=== PATIENT | male | born 1980 | race Caucasian/White ===

== ENCOUNTER 2018-04-06 09:12 | Day surgery (SDC) | payer OTHER ==
[~2018-04-06] VITALS: Ht 188 cm; Wt 79.4 kg
[~2018-04-06 09:12] MED LIST: ACETAMINOPHEN-1 EAC1 PO; AMBIEN10 MG PO; AMOXICILLIN500 MG PO; CYCLOBENZAPRINE10 MG PO; CYMBALTA30 MG PO; DAILY VITE1 EACH PO; FLUARIX QU60 MCG/0.3 IM; IBUPROFEN600 MG PO; NORCO 10-325 T1 EACH PO; NORCO 5-325 TA1 EACH PO; NORCO 7.5-3251 EACH PO; OXYCODON-ACETA1 EAC2 PO; POTASSIUM CHLO20 ME1 PO; PROPRANOLOL HCL20 MG PO; PROTONIX40 MG PO; RESTORIL30 MG PO; ULTRAM50 MG PO; VITAMIN D32000 UNIT PO; XANAX1 MG PO
--- NOTE | 2018-04-06 11:25 | NUR ---
04/06/18 1125 Anjelica Byrd 1121 PATIENT ARRIVES TO PACU SLEEPING, DOES NOT RESPOND TO VERBAL OR TACTILE STIMULI. RESP EVEN AND UNLABORED, NC AT 3 LITERS. TURNED OFF AFTER ARRIVALTO PACU.
--- NOTE | 2018-04-07 11:04 | OR ---
[facility] [address], [place] [address] Signed DATE OF OPERATION: 04/06/2018 SURGEON: Duane Orta MD PREOPERATIVE DIAGNOSIS: Chronic diarrhea. POSTOPERATIVE DIAGNOSES: 1. Chronic diarrhea. 2. Unremarkable colonoscopy. PROCEDURES: Colonoscopy with random cold biopsies. ESTIMATED BLOOD LOSS: None. INDICATIONS: Davy is a 37-year-old gentleman who [facility] [place] and he has had diarrhea ever since. He goes to bathroom at least 6-7 times a day. It is very loose with lots of water in particulate matter. He has some probable PTSD and is disabled from the . He stays home with his children while his works. He has had an upper endoscopy and his gallbladder removed that made no difference. He also had the appendix out apparently while [facility]. It also sounds like he has back and neck injuries as well. He was asked by his primary care provider to see me for a colonoscopy with biopsies due to his diarrhea. I met with Davy in the office and I gave him a pamphlet on endoscopy. He understands the nature of the test along with the risks including, but not limited to gas bloating, crampy abdominal pain, bleeding, perforation, requiring surgery, and missed diagnosis. He also understands the need for IV conscious sedation. He expressed understanding and wish to proceed. PROCEDURE NOTE: Davy was taken into our endoscopy suite and placed in the left lateral decubitus position. He was given divided doses of 14 mg of Versed and 250 mcg of fentanyl. A digital rectal exam was performed and this was unremarkable. The adult colonoscope was introduced and advanced all around into the cecum under direct visualization of camera without difficulty. His prep was good. He was still moderately agitated throughout the procedure, so getting into the terminal ileum was just not possible. If that is the case, he will need propofol. However, he had nice clear bile in the cecum, which was irrigated and suctioned out. We saw no pathology throughout the entire colon or rectum. Electronically Signed By: DUANE ORTA MD 04/07/18 1104 PATIENT NAME: DAVY NATARAJAN OPERATIVE REPORT DATE OF : 84 REPORT #: [id number] PHYSICIAN: DUANE ORTA MD PCP: BRENT RAYMOND NP REPORT IS CONFIDENTIAL AND NOT TO BE RELEASED WITHOUT AUTHORIZATION [facility] [address] [place] [id number] Signed We went ahead and took random biopsies as the scope was withdrawn including the rectum. Upon retroflexion of the scope, there was no additional pathology noted above the anal canal. After this, the gas was suctioned out and the colonoscope removed. Davy tolerated the procedure quite well. RECOMMENDATIONS: I will see Davy back in my office in 7 to 14 days to review his results. MD VINAY Quinones/SANDERL /[id number] cc: Dr. Narcisa Orta MD Copies: DUANE ORTA MD ~ Electronically Signed By: DUANE ORTA MD 04/07/18 1104 PATIENT NAME: DAVY NATARAJAN RUBENS OPERATIVE REPORT DATE OF : 84 REPORT #: [id number] PHYSICIAN: DUANE ORTA MD PCP: BRENT RAYMOND NP REPORT IS CONFIDENTIAL AND NOT TO BE RELEASED WITHOUT AUTHORIZATION
== END 2018-04-06 11:50 | disposition home or self-care (01) ==
LOC: DS 09:12 → OPS 09:12
PROVIDERS: Colon & Rectal Surgery
PROC: 0DBE8ZX Excision of Large Intestine, Via Natural or Artificial Opening Endoscopic, Diagnostic (ICD-10-PCS; principal; 2018-04-06 10:30)
DX: K52.9 Noninfective gastroenteritis and colitis, unspecified (principal); E78.5 Hyperlipidemia, unspecified; M85.80 Other specified disorders of bone density and structure, unspecified site; F43.12 Post-traumatic stress disorder, chronic; F17.220 Nicotine dependence, chewing tobacco, uncomplicated; Z79.899 Other long term (current) drug therapy
CPT/HCPCS: 88305; 99153; G0500; J2250; J3010; J7120

== ENCOUNTER 2020-03-16 17:27 | Emergency (ER) | payer OTHER ==
[~2020-03-16] VITALS: Ht 188 cm; Wt 81.7 kg
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
--- OUTSIDE RECORDS SUMMARY | ~2020-03-16 | XMS | Encounter Summary ---
Demographics + + + | Address | [address] | | | [place] [address] | + + + | Home Phone | | + + + | Preferred Language | Unknown | + + + | Marital Status | | + + + | Judaism Affiliation | Unknown | + + + | Race | Unknown | + + + | Ethnic Group | Unknown | + + + Author + + + | Author | [facility] | | | and [place] | + + + | Organization | [facility] | | | [...] [place] | | | | | [address] | | + + + + + Care Team Providers + +------+ + | Care Director Of Clinical Education Name | Role | Phone | + +------+ + | Javier Hyman MD | PCP | | + +------+ + Encounter Details +--------+ + + + + | Date | Type | Department | Care Team | Description | +--------+ + + + + | 03/20/ | Orders Only | [facility] | Provider, | Precocious puberty; | | 2018 | | [facility] | MD [address] | Other specified | | | | [address] | [address] | disorders of bone | | | | [address] [place], [place] | [place] [address] | density and | | | | [address] | | structure, | | | | [phone] | | unspecified site | +--------+ + + + + Social History + + + +--------+------+ | Tobacco Use | Types | Packs/Day | Years | Date | | | | | Used | | + + + +--------+------+ | Former Smoker | Cigarettes | 1 | 11 | | + + + +--------+------+ + +---+---+---+ | Smokeless Tobacco: | | | | | Former User | | | | + +---+---+---+ + + +---------+ + | Alcohol Use | Drinks/Week | oz/Week | Comments | + + +---------+ + | Yes | 21 Standard drinks | 17.5 | 3 drinks a night | | | or equivalent | | | + + +---------+ + + + + | Sex Assigned at | Date Recorded | | | | + + + | Not on file | | + + + documented as of this encounter Plan of Treatment + +------+--------+ + + | Name | Type | Priori | Associated Diagnoses | Order Schedule | | | | ty | | | + +------+--------+ + + | Testosterone, Total | Lab | Routin | Precocious puberty | Expected: | | | | e | | 02/13/2019, Expires: | | | | | | 02/13/2020 | + +------+--------+ + + | Estradiol | Lab | Routin | Precocious puberty | Expected: | | | | e | | 02/13/2019, Expires: | | | | | | 02/14/2020 | + +------+--------+ + + | Calcium, Urine, 24Hr | Lab | Routin | Other specified | Expected: | | | | e | disorders of bone | 02/13/2019, Expires: | | | | | density and | 02/14/2020 | | | | | structure, | | | | | | unspecified site | | + +------+--------+ + + | Vitamin D, | Lab | Routin | Other specified | Expected: | | Deficiency Screen | | e | disorders of bone | 02/13/2019, Expires: | | (25-Hydroxy) | | | density and | 02/14/2020 | | | | | structure, | | | | | | unspecified site | | + +------+--------+ + + | Basic Metabolic | Lab | Routin | Other specified | Expected: | | Panel | | e | disorders of bone | 02/13/2019, Expires: | | | | | density and | 02/14/2020 | | | | | structure, | | | | | | unspecified site | | + +------+--------+ + + documented as of this encounter Visit Diagnoses + + | Diagnosis | + + | Precocious puberty Precocious sexual development and puberty, not elsewhere | | classified | + + | Other specified disorders of bone density and structure, unspecified site | + + documented in this encounter"
--- OUTSIDE RECORDS SUMMARY | ~2020-03-16 | XMS | Encounter Summary ---
Demographics + + + | Address | [address] | | | [place] [address] | + + + | Home Phone | | + + + | Preferred Language | Unknown | + + + | Marital Status | | + + + | Voodoo Affiliation | Unknown | + + + | Race | Unknown | + + + | Ethnic Group | Unknown | + + + Author + + + | Author | [facility] | | | and [place] | + + + | Organization | [facility] | | | [...] [place] | | | | | [address] | | + + + + + Care Team Providers + +------+ + | Care Substation Technician Name | Role | Phone | + +------+ + | Javier Hyman MD | PCP | | + +------+ + Encounter Details +--------+ + + + + | Date | Type | Department | Care Team | Description | +--------+ + + + + | 09/13/ | Hospital | [facility] | Conversion | Pain | | 2014 | Encounter | CONVERSION [address] | Transaction, | | | | | [address] | Provider Unknown | | | | | [place], [place] | [phone] | | | | | [address] | | | | | | [phone] | | | +--------+ + + + + Social History + + + +--------+------+ | Tobacco Use | Types | Packs/Day | Years | Date | | | | | Used | | + + + +--------+------+ | Current Every Day | Cigarettes | 1 | 11 | | | Smoker | | | | | + + + +--------+------+ + [...] + + documented as of this encounter Medications at Time of Discharge + + + +---------+--------+ + | Medication | Sig | Dispensed | Refills | Start | End Date | | | | | | Date | | + + + +---------+--------+ + | cyclobenzaprine | Take 10 mg by mouth | | 0 | | | | (FLEXERIL) 10 mg | 3 times daily as | | | | 0 | | tablet | needed. | | | | | + + + +---------+--------+ + | zolpidem (AMBIEN) | Take 10 mg by mouth | | 0 | | | | 10 mg tablet | nightly as needed. | | | | 0 | + + + +---------+--------+ + documented as of this encounter Plan of Treatment Not on filedocumented as of this encounter Procedures + +--------+ + + + | Procedure Name | Priori | Date/Time | Associated Diagnosis | Comments | | | ty | | | | + +--------+ + + + | MRI LUMBAR SPINE WO | Routin | 07/31/2012 | | Results for this | | CONTRAST | e | 5:45 AM | | procedure are in the | | | | PST | | results section. | + +--------+ + + + documented in this encounter Results MRI Lumbar Spine wo Contrast (07/31/2012 5:45 AM PST) + + | Specimen | + + | | + + + + + | Narrative | Performed At | + + + | This is a non-reportable procedure without a radiologist report and | | | is used for image storage only | | + + + + + | Procedure Note | + + | Brenden Kay Conversion - 03/30/2019 11:20 AM PDT This is a non-reportable procedure | | without a radiologist report and isused for image storage only | + + documented in this encounter Visit Diagnoses + + | Diagnosis | + + | Pain Generalized pain | + + documented in this encounter"
--- OUTSIDE RECORDS SUMMARY | ~2020-03-16 | XMS | Encounter Summary ---
Demographics + + + | Address | [address] | | | [place] [address] | + + + | Home Phone | | + + + | Preferred Language | Unknown | + + + | Marital Status | | + + + | Catholic Affiliation | Unknown | + + + | Race | Unknown | + + + | Ethnic Group | Unknown | + + + Author + + + | Author | [facility] | | | and [place] | + + + | Organization | [facility] | | | [...] [place] | | | | | [address] | | + + + + + Care Team Providers + +------+ + | Care Registered Health Nurse Name | Role | Phone | + +------+ + | Javier Hyman MD | PCP | | + +------+ + Encounter Details +--------+ + + + + | Date | Type | Department | Care Team | Description | +--------+ + + + + | 08/23/ | Imaging | [facility] | Provider, | | | 2020 | Exam | [facility] | MD [address] | | | | | IMAGING [address] | | | | | [address] | [place] [address] | | | | | [place] [address] | | | | | | [phone] | | | +--------+ + + + + Social History + +-------+ +--------+------+ | Tobacco Use | Types | Packs/Day | Years | Date | | | | | Used | | + +-------+ +--------+------+ | Never Assessed | | | | | + +-------+ +--------+------+ + + + | Sex Assigned at [...] | + +--------+ + + + | XR LUMBAR SPINE 2 OR | Routin | 02/15/2012 | | Results for this | | 3 VW | e | 12:00 AM | | procedure are in the | | | | PDT | | results section. | + +--------+ + + + documented in this encounter Results XR Lumbar Spine 2 or 3 Vw (02/15/2012 12:00 AM PDT) + + | Specimen | + + | | + + + + + | Narrative | Performed At | + + + | External films for comparison only | [facility] | | | | | No results will be in the chart. | | + + + + +---------+ + + | Performing | Address | City/State/Zipcode | Phone Number | | Organization | | | | + +---------+ + + | [facility] | | | | + +---------+ + + documented in this encounter Visit Diagnoses Not on filedocumented in this encounter"
--- OUTSIDE RECORDS SUMMARY | ~2020-03-16 | XMS | Encounter Summary ---
Demographics + + + | Address | [address] | | | [place] [address] | + + + | Home Phone | | + + + | Preferred Language | Unknown | + + + | Marital Status | | + + + | Jainism Affiliation | Unknown | + + + | Race | Unknown | + + + | Ethnic Group | Unknown | + + + Author + + + | Author | [facility] | | | and [place] | + + + | Organization | [facility] | | | and [...] [place] | | | | | [address] | | + + + + + Care Team Providers + +------+ + | Care Test Rack Operator Name | Role | Phone | + +------+ + PCP | Unavailable | + +------+ + Encounter Details +--------+ + + + + | Date | Type | Department | Care Team | Description | +--------+ + + + + | 08/28/ | Hospital | [facility] GENERIC IP | Conversion | Back pain | | 2012 | Encounter | CONVERSION [address] | Transaction, | | | | | [address] | Provider Unknown | | | | | [facility] [place] | [phone] | | | | | [address] | | | | | | [phone] | | | +--------+ + + + [...] + +--------+ + + + | MRI THORACIC SPINE | Routin | 07/31/2012 | | Results for this | | WO CONTRAST | e | 2:25 PM | | procedure are in the | | | | PST | | results section. | + +--------+ + + + documented in this encounter Results MRI Thoracic Spine wo Contrast (07/31/2012 2:25 PM PST) + + | Specimen | + + | | + + + + + | Narrative | Performed At | + + + | This is a non-reportable procedure without a radiologist report and | | | is used for image storage only | | + + + + + | Procedure Note | + + | Brenden Kay - 04/06/2019 4:51 PM PDT This is a non-reportable procedure | | without a radiologist report and isused for image storage only | + + documented in this encounter Visit Diagnoses + + | Diagnosis | + + | Back pain Backache, unspecified | + + documented in this encounter"
--- OUTSIDE RECORDS SUMMARY | ~2020-03-16 | XMS | Encounter Summary ---
Demographics + + + | Address | [address] | | | [place] [address] | + + + | Home Phone | | + + + | Preferred Language | Unknown | + + + | Marital Status | | + + + | Congregational Affiliation | Unknown | + + + | Race | Unknown | + + + | Ethnic Group | Unknown | + + + Author + + + | Author | [facility] | | | and [place] | + + + | Organization | [facility] | | | [...] [place] | | | | | [address] | | + + + + + Care Team Providers + +------+ + | Care Transit Mixer Driver Name | Role | Phone | + +------+ + | Javier Hyman MD | PCP | | + +------+ + Encounter Details +--------+ + + + + | Date | Type | Department | Care Team | Description | +--------+ + + + + | 08/29/ | Imaging | [facility] | Provider, | | | 2020 | Exam | [facility] EXTER[facility] | MD [address] | | | | | IMAGING [address] | | | | | [address] | [place] [address] | | | | | [place] [address] | | | | | | [phone] | | | +--------+ + + + [...] + +--------+ + + + | MRI CERVICAL SPINE | Routin | 03/30/2018 | | Results for this | | WO CONTRAST | e | 12:00 AM | | procedure are in the | | | | PDT | | results section. | + +--------+ + + + documented in this encounter Results MRI Cervical Spine wo Contrast (03/30/2018 12:00 AM PDT) + + | Specimen [...]
--- OUTSIDE RECORDS SUMMARY | ~2020-03-16 | XMS | Clinical Summary ---
Demographics + + + | Address | [address] | | | [place] [address] | + + + | Home Phone | | + + + | Preferred Language | Unknown | + + + | Marital Status | | + + + | Christian Affiliation | Unknown | + + + | Race | Unknown | + + + | Ethnic Group | Unknown | + + + Author + + + | Author | [facility] | | | and [place] | + + + | Organization | [facility] | | | and [...] [place] | | | | | [address] | | + + + + + Care Team Providers + +------+ + | Care Senior Hadoop Developer Name | Role | Phone | + +------+ + | Christina Alan | PCP | | + +------+ + Allergies + + + + + + | Active Allergy | Reactions | Severity | Noted | Comments | | | | | Date | | + + + + + + | Bupropion | Headache | Low | 11/10/19 | | | | | | 17 | | + + + + + + | Citalopram | Headache | Medium | 03/20/20 | | | | | | 19 | | + + + + + + | Fluoxetine | Headache | Low | 03/20/20 | | | | | | 19 | | + + + + + + | Sertraline | Headache | Low | 03/20/20 | | | | | | 19 | | + + + + + + Medications + + + +---------+------+------+-------+ | Medication | Sig | Dispensed | Refills | Star | End | Statu | | | | | | t | Date | s | | | | | | Date | | | + + + +---------+------+------+-------+ | Fish Oil 1000 MG | Take 1,000 mg by | | 0 | | | Activ | | delayed release | mouth as needed. | | | | | e | | capsule | | | | | | | + + + +---------+------+------+-------+ | cholecalciferol | Take 2,000 Units by | | 0 | | | Activ | | (VITAMIN D3) 50 mcg | mouth as needed. | | | | | e | | (2,000 units) | | | | | | | | capsule | | | | | | | + + + +---------+------+------+-------+ | cetirizine | Take 10 mg by mouth | | 0 | | | Activ | | (ZYRTEC) 10 mg | as needed. | | | | | e | | tablet | | | | | | | + + + +---------+------+------+-------+ | sodium chloride | 2 sprays by Nasal | | 0 | | | Activ | | (OCEAN) 0.65 % nasal | route as needed. | | | | | e | | spray | | | | | | | + + + +---------+------+------+-------+ | Multiple | Take 1 tablet by | | 0 | | | Activ | | Vitamins-Minerals | mouth as needed. | | | | | e | | (MULTIVITAMIN ADULT) | | | | | | | | TABS | | | | | | | + + + +---------+------+------+-------+ | methylPREDNISolone | Follow package | 21 | 0 | 10/13 | | Activ | | (MEDROL DOSEPAK) 4 | directions. | tablet | | 09/03 | | e | | mg tablet | | | | 20 | | | + + + +---------+------+------+-------+ +---+ + | | Additional | | | InformationPatient | | | not taking. Reported | | | on 10/24/2019 10:17 | | | AM | +---+ + Active Problems + + + | Problem | Noted Date | + + + | Arrhythmia | 02/08/2019 | + + + | Abdominal pain | 08/24/2016 | + + + | Non-cardiac chest pain | 08/24/2016 | + + + | Organic insomnia, unspecified | 09/28/2012 | + + + + + | Overview: ICD-10 Record update | + + + + + | PTSD (post-traumatic stress disorder) | 09/28/2012 | + + + Encounters +--------+ + + + + | Date | Type | Specialty | Care Team | Description | +--------+ + + + + | 01/28/ | Telephone | Neurosurgery | Lisa García MD | Coordination Of Care | | 2019 | | | | | +--------+ + + + + from Last 3 Months Immunizations + + + + | Name | Administration Dates | Next Due | + + + + | DTAP, 5 DOSE (PED) | 05/31/1988 | | + + + + | DTP (PED) | 07/02/1983, 05/06/1983, 03/04/1983 | | + + + + | POLIOVIRUS,OPV | 05/31/1988, 07/02/1983, 05/06/1983, | | | (LIVE) | 03/04/1983 | | + + + + Family History + + +--------+ + | Medical History | Relation | Name | Comments | + + +--------+ + | No known problems | Brother | | | + + +--------+ + | Diabetes, NIDDM | Father | Juan | | | | | [place] | | + + +--------+ + | Multiple sclerosis | Father | Juan | | | | | [place] | | + + +--------+ + | Sleep apnea | Father | Juan | SOULEYMANE - CPAP | | | | [place] | | + + +--------+ + | No known problems | Maternal | | | | | Grandfath | | | | | er | | | + + +--------+ + | No known problems | Maternal | | | | | Grandmoth | | | | | er | | | + + +--------+ + | Osteoporosis | Mother | | | + + +--------+ + | No known problems | Paternal | | | | | Grandfath | | | | | er | | | + + +--------+ + | No known problems | Paternal | | | | | Grandmoth | | | | | er | | | + + +--------+ + | No known problems | Sister | | | + + +--------+ + | No known problems | Son | | | + + +--------+ + | No known problems | Son | | | + + +--------+ + + +--------+--------+ + | Relation | Name | Status | Comments | + +--------+--------+ + | Brother | | Alive | | + +--------+--------+ + | Father | Juan | Alive | | | | [place] | | | + +--------+--------+ + | Maternal Grandfather | | | | + +--------+--------+ + | Maternal Grandmother | | | | + +--------+--------+ + | Mother | | | | + +--------+--------+ + | Paternal Grandfather | | | | + +--------+--------+ + | Paternal Grandmother | | | | + +--------+--------+ + | Sister | | | | + +--------+--------+ + | Son | | Alive | | + +--------+--------+ + | Son | | Alive | | + +--------+--------+ + Social History + + + +--------+ [...] on file | | + + + Last Filed Vital Signs + + + + + | Vital Sign | Reading | Time Taken | Comments | + + + + + | Blood Pressure | 110/68 | 10/24/2019 10:15 AM | | | | | PDT | | + + + + + | Pulse | 78 | 10/24/2019 10:15 AM | | | | | PDT | | + + + + + | Temperature | 36.3 C (97.3 F) | 09/19/2019 11:01 AM | | | | | PST | | + + + + + | Respiratory Rate | 14 | 10/24/2019 9:18 AM | | | | | PDT | | + + + + + | Oxygen Saturation | 97% | 10/24/2019 10:15 AM | | | | | PDT | | + + + + + | Inhaled Oxygen | - | - | | | Concentration | | | | + + + + + | Weight | 85.7 kg (188 lb 15 | 10/24/2019 10:15 AM | | | | oz) | PDT | | + + + + + | Height | 188 cm (6' 2") | 10/24/2019 10:15 AM | | | | | PDT | | + + + + + | Body Mass Index | 24.26 | 10/24/2019 10:15 AM | | | | | PDT | | + + + + + Plan of Treatment + + + + + | Health Maintenance | Due Date | Last | Comments | | | | Done | | + + + + + | Hepatitis C | | | | | Screening | 3 | | | + + + + + | Vaccine: | | 05/31/19 | | | Dtap/Tdap/Td (5 - | 4 | 88, | | | Tdap) | | 11/18/19 | | | | | 83, | | | | | 05/06/19 | | | | | 83, | | | | | Addition | | | | | al | | | | | history | | | | | exists | | + + + + + | Vaccine: Influenza | | 04/16/20 | | | (#1) | 0 | 19 | | + + + + + Results Not on filefrom Last 3 Months Insurance + +--------+ +--------+-------+---------+--------+ | Payer | Benefi | Subscriber | Effect | Phone | Address | Type | | | t Plan | ID | davie | | | | | | / | | Dates | | | | | | Group | | | | | | + +--------+ +--------+-------+---------+--------+ | [employer] | [place] | [id number] | | | | Indemn | | | NS | | [address]-Pr | | | ity | | | ADMIN | | esent | | | | | | [place] | | | | | | | | [place] | | | | | | + +--------+ +--------+-------+---------+--------+ | [employer] | [place] | [id number] | 08/20/19 | | | Indemn | | | COMMUN | | 20-Pre | | | ity | | | ITY | | sent | | | | | | CARE | | | | | | + +--------+ +--------+-------+---------+--------+ + +--------+ +--------+ + + | Guarantor Name | Accoun | Relation to | Date | Phone | Billing Address | | | t Type | Patient | of | | | | | | | | | | + +--------+ +--------+ + + | Davy [place] | Person | Self [birth year] | [address] | | [place] | jordon/Lalo | | 1980 | [phone] | [place] | | | [place] | | | [address] (Home) | [address] | + +--------+ +--------+ + + Advance Directives + + + + + | Type | Date Recorded | Patient | Explanation | | | | Pearl Maker | | + + + + + | Power of | | | | | Aeronautical Engineering Teacher | | | | + + + + + | Advance | 09/19/2019 10:45 | | | | Directive | AM | | | + + + + +
--- OUTSIDE RECORDS SUMMARY | ~2020-03-16 | XMS | Encounter Summary ---
Demographics + + + | Address | [address] | | | [place] [address] | + + + | Home Phone | | + + + | Preferred Language | Unknown | + + + | Marital Status | | + + + | Hinduism Affiliation | Unknown | + + + | Race | Unknown | + + + | Ethnic Group | Unknown | + + + Author + + + | Author | [facility] | | | and [place] | + + + | Organization | [facility] | | | [...] [place] | | | | | [address] | | + + + + + Care Team Providers + +------+ + | Care Residential Support Specialist Name | Role | Phone | + +------+ + | Javier Hyman MD | PCP | | + +------+ + Encounter Details +--------+ + + + + | Date | Type | Department | Care Team | Description | +--------+ + + + + | 09/13/ | Hospital | [facility] GENER[facility] IP | Conversion | Pain | | 2014 | Encounter | CONVERSION [address] | Transaction, | | | | | [address] | Provider Unknown | | | | | [place], [place] | [phone] | | | | | [address] | | | | | | [phone] | | | +--------+ + + + [...] | | 3 VW | e | 5:45 AM | | procedure are in the | | | | PDT | | results section. | + +--------+ + + + documented in this encounter Results XR Lumbar Spine 2 or 3 Vw (02/15/2012 5:45 AM PDT) + + | Specimen | [...]
--- OUTSIDE RECORDS SUMMARY | ~2020-03-16 | XMS | Encounter Summary ---
Demographics + + + | Address | [address] | | | [place] [address] | + + + | Home Phone | | + + + | Preferred Language | Unknown | + + + | Marital Status | | + + + | Latter-Day Affiliation | Unknown | + + + | Race | Unknown | + + + | Ethnic Group | Unknown | + + + Author + + + | Author | [facility] | | | and [place] | + + + | Organization | [facility] | | | [...] [place] | | | | | [address] | | + + + + + Care Team Providers + +------+ + | Care Welding Instructor Name | Role | Phone | + +------+ + | Javier Hyman MD | PCP | | + +------+ + Encounter Details +--------+ + + + + | Date | Type | Department | Care Team | Description | +--------+ + + + + | 02/09/ | Orders Only | [facility] | Narcisa Finn | | | 2018 | | CONVERSION [address] | MD [address] | | | | | [address] | [address] [place] | | | | | [place], [place] | [address] | | | | | [address] | | | | | | [phone] | | | +--------+ + + + [...] | + +--------+ + + + | ECHO INTERPRETATION | Routin | 02/09/2019 | | Results for this | | OF OUTSIDE FILMS | e | 12:20 PM | | procedure are in the | | | | PDT | | results section. | + +--------+ + + + documented in this encounter Results ECHO Interpretation of Outside Films (02/09/2019 12:20 PM PDT) + + | Specimen | + + | | + + + + + | Impressions | Performed At | + + + | 1. Essentially normal study. | | + + + + + + | Narrative | Performed At | + + + | Patient Name: Davy Clayton Date of : 1980 | | | Performing Physician: JENNIFER GAMEZ MD LF | | | | | | INDICATIONS PALPITATIONS CONCLUSIONS | | | 1. Essentially normal study. FINDINGS -------- ECG rhythm: Sinus | | | rhythm. Study: A 2-dimensional transthoracic echocardiogram with | | | m-mode, spectral and color flow Doppler was perfomed. Study: This was | | | a technically good study. Left Ventricle: Overall left ventricular | | | systolic function is normal with, an EF between 60 - 65 %. Left | | | Ventricle: The left ventricle cavity size is normal. Left Ventricle: | | | Left ventricular wall thickness is normal. Left Ventricle: The | | | diastolic filling pattern is normal for the age of the patient. Right | | | Ventricle: The right ventricle is normal in size and function. Left | | | Atrium: The left atrium is normal in size. Right Atrium: The right | | | atrium is normal in size. Aortic Valve: The aortic valve is | | | trileaflet, and appears anatomically normal. No aortic stenosis or | | | regurgitation. Mitral Valve: Normal appearing mitral valve. Mitral | | | Valve: There is trace/mild mitral regurgitation. Tricuspid Valve: The | | | tricuspid valve appears structurally normal. Tricuspid Valve: Trace | | | tricuspid regurgitation present. Tricuspid Valve: Pulmonary artery | | | systolic pressure could not be assessed due to the absence of adequate | | | TR jet. Pulmonic Valve: Pulmonic valve appears structurally normal. | | | Pulmonic Valve: Trace pulmonic regurgitation. Pericardium: There | | | is no pericardial effusion. IVC/Hepatic Veins: The inferior vena cava | | | is normal in size and collapses > 50 % with sniff, indicating normal | | | central venous pressures. Aorta: The aortic root, ascending aorta and | | | aortic arch are normal. Mass: No mass visualized Thrombus: No clot | | | visualized Thrombus: No vegetation visualized. Septum: No ASD | | | observed. Septum: No VSD observed. MEASUREMENTS | | | Ao asc: 2.87 cm Ao sinus: 3.[address] junct: 2.68 cm | | | IVC: 2.44 cm EDV(Teich): 124.29 ml IVSd: 0.79 cm LVIDd: | | | 5.10 cm LVPWd: 0.92 cm LVOT Area: 4.05 cm2 LVOT Diam: | | | 2.27 cm %FS: 31.21 % EF(Teich): 58.68 % ESV(Teich): 51.35 | | | ml LVIDs: 3.51 cm SV(Teich): 72.94 ml LVEF MOD A2C: 64.19 | | | % SV MOD A2C: 86.13 ml LVEF MOD A4C: 67.89 % SV MOD A4C: | | | 107.37 ml EF Biplane: 67.42 % LVEDV MOD BP: 152.29 ml LVESV | | | MOD BP: 49.60 ml LVEDV MOD A2C: 134.18 ml LVLd A2C: 8.14 cm | | | LVEDV MOD A4C: 158.15 ml LVLd A4C: 8.92 cm LVESV MOD A2C: | | | 48.04 ml LVLs A2C: 6.79 cm LVESV MOD A4C: 50.78 ml LVLs A4C: | | | 6.88 cm LAESV(A-L): 56.19 ml LAESV Index (A-L): 28.09 | | | ml/m2 LAAs A2C: 16.00 cm2 LAESV A-L A2C: 48.91 ml LALs A2C: | | | 4.44 cm LAAs A4C: 18.32 cm2 LAESV A-L A4C: 64.33 ml LALs | | | A4C: 4.43 cm RAAs: 17.62 cm2 RAESV A-L: 59.15 ml RAESV | | | MOD: 51.93 ml RALs: 4.45 cm TAPSE: 2.55 cm AV maxPG: | | | 5.52 mmHg AV meanP.79 mmHg AV Vmax: 1.17 m/s AV Vmean: | | | 0.78 m/s AV VTI: 24.09 cm KRYSTA Vmax: 3.55 cm2 KRYSTA (VTI): | | | 3.31 cm2 AVAI (Vmax): 0.00 cm2/m2 AVAI (VTI): 0.00 cm2/m2 | | | LVOT maxP.25 mmHg LVOT meanP.26 mmHg LVSI Dopp: | | | 39.92 ml/m2 LVSV Dopp: 79.84 ml LVOT Vmax: 1.03 m/s LVOT | | | Vmean: 0.70 m/s LVOT VTI: 19.70 cm MV A Brice: 0.43 m/s MV | | | Dec Todd: 4.81 m/s2 MV DecT: 157.01 ms MV E Brice: 0.75 m/s | | | MV E/A Ratio: 1.71 MV PHT: 45.53 ms MVA By PHT: 4.83 cm2 | | | Septal e': 0.09 m/s Septal E/e': 7.65 Lateral e': 0.16 m/s | | | Lateral E/e': 4.64 RAP: 5 mmHg RV s': 0.13 m/s | | | Stripper Opaquer: KEERTHI Authenticated by: JENNIFER GAMEZ MD LF Report | | | Date/Time: 02-09-2019 16:38:15 | | + + + + + | Procedure Note | + + | Rahul, Rad Conversion - 04/05/2019 1:16 PM PDT Patient Name: Aggie Clayton of | | : 1980 Performing Physician: JENNIFER GAMEZ MD | | LF INDICATIONS P | | ALPITATIONS CONCLUSIONS 1. Essentially normal study. FINDINGS--------ECG | | rhythm: Sinus rhythm.Study: A 2-dimensional transthoracic echocardiogram with m-mode, | | spectral and color flow Doppler was perfomed.Study: This was a technically good | | study.Left Ventricle: Overall left ventricular systolic function is normal with, an EF | | between 60 - 65 %.Left Ventricle: The left ventricle cavity size is normal.Left | | Ventricle: Left ventricular wall thickness is normal.Left Ventricle: The diastolic | | filling pattern is normal for the age of the patient.Right Ventricle: The right | | ventricle is normal in size and function.Left Atrium: The left atrium is normal in | | size.Right Atrium: The right atrium is normal in size.Aortic Valve: The aortic valve is | | trileaflet, and appears anatomically normal. No aortic stenosis or regurgitation.Mitral | | Valve: Normal appearing mitral valve.Mitral Valve: There is trace/mild mitral | | regurgitation.Tricuspid Valve: The tricuspid valve appears structurally normal.Tricuspid | | Valve: Trace tricuspid regurgitation present.Tricuspid Valve: Pulmonary artery systolic | | pressure could not be assessed due to the absence of adequate TR jet.Pulmonic Valve: | | Pulmonic valve appears structurally normal.Pulmonic Valve: Trace pulmonic | | regurgitation.Pericardium: There is no pericardial effusion.IVC/Hepatic Veins: The | | inferior vena cava is normal in size and collapses > 50 % with sniff, indicating normal | | central venous pressures.Aorta: The aortic root, ascending aorta and aortic arch are | | normal.Mass: No mass visualizedThrombus: No clot visualizedThrombus: No vegetation | | visualized.Septum: No ASD observed.Septum: No VSD observed. MEASUREMENTS Ao | | asc: 2.87 cmAo sinus: 3.[address] junct: 2.68 cmIVC: 2.44 cmEDV(Teich): | | 124.29 mlIVSd: 0.79 cmLVIDd: 5.10 cmLVPWd: 0.92 cmLVOT Area: 4.05 [id number] Diam: | | 2.27 cm%FS: 31.21 %EF(Teich): 58.68 %ESV(Teich): 51.35 mlLVIDs: 3.51 | | cmSV(Teich): 72.94 mlLVEF MOD A2C: 64.19 %SV MOD A2C: 86.13 mlLVEF MOD A4C: | | 67.89 %SV MOD A4C: 107.37 mlEF Biplane: 67.42 %LVEDV MOD BP: 152.29 mlLVESV MOD | | BP: 49.60 mlLVEDV MOD A2C: 134.18 mlLVLd A2C: 8.14 cmLVEDV MOD A4C: 158.15 | | mlLVLd A4C: 8.92 cmLVESV MOD A2C: 48.04 mlLVLs A2C: 6.79 cmLVESV MOD A4C: 50.78 | | mlLVLs A4C: 6.88 cmLAESV(A-L): 56.19 mlLAESV Index (A-L): 28.09 ml/m2LAAs A2C: | | 16.00 [id number] A-L A2C: 48.91 mlLALs A2C: 4.44 cmLAAs A4C: 18.32 [id number] A-L A4C: | | 64.33 mlLALs A4C: 4.43 cmRAAs: 17.62 [id number] A-L: 59.15 mlRAESV MOD: 51.93 | | mlRALs: 4.45 cmTAPSE: 2.55 cmAV maxP.52 mmHgAV meanP.79 mmHgAV Vmax: | | 1.17 m/Ender Vmean: 0.78 m/Ender VTI: 24.09 cmAVA Vmax: 3.55 cm2AVA (VTI): 3.31 | | [id number] (Vmax): 0.00 cm2/m2AVAI (VTI): 0.00 cm2/m2LVOT maxP.25 mmHgLVOT | | meanP.26 mmHgLVSI Dopp: 39.92 ml/m2LVSV Dopp: 79.84 mlLVOT Vmax: 1.03 | | m/sLVOT Vmean: 0.70 m/sLVOT VTI: 19.70 cmMV A Brice: 0.43 m/sMV Dec Todd: 4.81 | | m/s2MV DecT: 157.01 msMV E Brice: 0.75 m/sMV E/A Ratio: 1.71MV PHT: 45.53 msMVA By | | PHT: 4.83 [id number] e': 0.09 m/sSeptal E/e': 7.65Lateral e': 0.16 m/sLateral | | E/e': 4.64RAP: 5 mmHgRV s': 0.13 m/s Stripper Opaquer: DBSAuthenticated by: JENNIFER | | FRANCO GAY LFReport Date/Time: 02-09-2019 16:38:15 IMPRESSION: 1. Essentially normal study. | |Septum: No ASD observed. | |Septum: No VSD observed. | | | |MEASUREMENTS | | | |Ao asc: 2.87 cm | |Ao sinus: 3.38 cm | |Ao st junct: 2.68 cm | |IVC: 2.44 cm | |EDV(Teich): 124.29 ml | |IVSd: 0.79 cm | |LVIDd: 5.10 cm | |LVPWd: 0.92 cm | |LVOT Area: 4.05 cm2 | |LVOT Diam: 2.27 cm | |%FS: 31.21 % | |EF(Teich): 58.68 % | |ESV(Teich): 51.35 ml | |LVIDs: 3.51 cm | |SV(Teich): 72.94 ml | |LVEF MOD A2C: 64.19 % | |SV MOD A2C: 86.13 ml | |LVEF MOD A4C: 67.89 % | |SV MOD A4C: 107.37 ml | |EF Biplane: 67.42 % | |LVEDV MOD BP: 152.29 ml | |LVESV MOD BP: 49.60 ml | |LVEDV MOD A2C: 134.18 ml | |LVLd A2C: 8.14 cm | |LVEDV MOD A4C: 158.15 ml | |LVLd A4C: 8.92 cm | |LVESV MOD A2C: 48.04 ml | |LVLs A2C: 6.79 cm | |LVESV MOD A4C: 50.78 ml | |LVLs A4C: 6.88 cm | |LAESV(A-L): 56.19 ml | |LAESV Index (A-L): 28.09 ml/m2 | |LAAs A2C: 16.00 cm2 | |LAESV A-L A2C: 48.91 ml | |LALs A2C: 4.44 cm | |LAAs A4C: 18.32 cm2 | |LAESV A-L A4C: 64.33 ml | |LALs A4C: 4.43 cm | |RAAs: 17.62 cm2 | |RAESV A-L: 59.15 ml | |RAESV MOD: 51.93 ml | |RALs: 4.45 cm | |TAPSE: 2.55 cm | |AV maxP.52 mmHg | |AV meanP.79 mmHg | |AV Vmax: 1.17 m/s | |AV Vmean: 0.78 m/s | |AV VTI: 24.09 cm | |KRYSTA Vmax: 3.55 cm2 | |KRYSTA (VTI): 3.31 cm2 | |AVAI (Vmax): 0.00 cm2/m2 | |AVAI (VTI): 0.00 cm2/m2 | |LVOT maxP.25 mmHg | |LVOT meanP.26 mmHg | |LVSI Dopp: 39.92 ml/m2 | |LVSV Dopp: 79.84 ml | |LVOT Vmax: 1.03 m/s | |LVOT Vmean: 0.70 m/s | |LVOT VTI: 19.70 cm | |MV A Brice: 0.43 m/s | |MV Dec Todd: 4.81 m/s2 | |MV DecT: 157.01 ms | |MV E Brice: 0.75 m/s | |MV E/A Ratio: 1.71 | |MV PHT: 45.53 ms | |MVA By PHT: 4.83 cm2 | |Septal e': 0.09 m/s | |Septal E/e': 7.65 | |Lateral e': 0.16 m/s | |Lateral E/e': 4.64 | |RAP: 5 mmHg | |RV s': 0.13 m/s | | | |Stripper Opaquer: DBS | |Authenticated by: JENNIFER GAMEZ MD | |Report Date/Time: 02-09-2019 16:38:15 | | | |IMPRESSION: | |1. Essentially normal study. | + + documented in this encounter Visit Diagnoses Not on filedocumented in this encounter"
--- OUTSIDE RECORDS SUMMARY | ~2020-03-16 | XMS | Encounter Summary ---
Demographics + + + | Address | [address] | | | [place] [address] | + + + | Home Phone | | + + + | Preferred Language | Unknown | + + + | Marital Status | | + + + | Pentecostalism Affiliation | Unknown | + + + | Race | Unknown | + + + | Ethnic Group | Unknown | + + + Author + + + | Author | [facility] | | | and [place] | + + + | Organization | [facility] | | | and [...] [place] | | | | | [address] | | + + + + + Care Team Providers + +------+ + | Care Boat Fueler Name | Role | Phone | + +------+ + | Javier Hyman MD | PCP | | + +------+ + Encounter Details +--------+ + + + + | Date | Type | Department | Care Team | Description | +--------+ + + + + | 11/09/ | Orders Only | [facility] | Chance Saleh, | | | 2016 | | [address] | [address] | | | | | [place], [place] | [place], | | | | | [address] | [place] [address] | | | | | [phone] | [phone] | | | | | | | | +--------+ + [...] + + documented as of this encounter Progress Notes Chance Saleh MD - 11/16/2016 8:25 PM PDTFormatting of this note might be differ ent from the original. Progress Notes by Chance Saleh MD at 11/16/162024 Author: Chance Saleh MD Service: (none) Author Type: Physician Filed: 11/16/162024 Encounter Date: 11/09/2016 Status: Signed Clinical Coordinator: Chance Saleh MD (Physician) Quick Note: Could you please call Davy and let him know that his labs came back showing a couple abnormalities that could possibly explain his sympotms. His chromogrannin levels came back high, but the significance of this is unclear. Chromogrannin is used as a screening test, but follow-up testing with more specifics tests is needed to define exactly what this means. The tests we need for this include more blood tests as well as a 24 hour urine collection. The other abnormalities in the lab report include elevated estrogen levels and low vitamin D. I would recommend he start taking 5000 units of vitamin D every day to bring up his levels. Before we address the estrogen though, I would like to determine the cause of the high chromogrannin test. I'm assuming he would like these tests done at [facility] in [place]. I ordered the tests we need electronically, could you please print these off and fax to [facility]? Thanks! documented in this encounter Plan of Treatment Not on filedocumented as of this encounter Procedures + +--------+ + + + | Procedure Name | Priori | Date/Time | Associated Diagnosis | Comments | | | ty | | | | + +--------+ + + + | TESTOSTERONE, TOTAL | Routin | 11/09/2016 | | Results for this | | AND FREE, LC/MS | e | 3:50 PM | | procedure are in the | | | | PDT | | results section. | + +--------+ + + + | VITAMIN D, | Routin | 11/09/2016 | | Results for this | | DEFICIENCY SCREEN | e | 3:50 PM | | procedure are in the | | (25-HYDROXY) | | PDT | | results section. | + +--------+ + + + | CREATININE, URINE, | Routin | 11/09/2016 | | Results for this | | RANDOM | e | 3:50 PM | | procedure are in the | | | | PDT | | results section. | + +--------+ + + + | CALCIUM, URINE, | Routin | 11/09/2016 | | Results for this | | RANDOM | e | 3:50 PM | | procedure are in the | | | | PDT | | results section. | + +--------+ + + + | PROLACTIN | Routin | 11/09/2016 | | Results for this | | | e | 3:50 PM | | procedure are in the | | | | PDT | | results section. | + +--------+ + + + | ESTRADIOL | Routin | 11/09/2016 | | Results for this | | | e | 3:50 PM | | procedure are in the | | | | PDT | | results section. | + +--------+ + + + | PARATHYROID HORMONE, | Routin | 11/09/2016 | | Results for this | | INTACT | e | 3:50 PM | | procedure are in the | | | | PDT | | results section. | + +--------+ + + + | COMPREHENSIVE | Routin | 11/09/2016 | | Results for this | | METABOLIC PANEL | e | 3:50 PM | | procedure are in the | | | | PDT | | results section. | + +--------+ + + + documented in this encounter Results Total and Free Testosterone (11/09/2016 3:50 PM PDT) + + + + + + | Component | Value | Ref Range | Performed | Pathologist | | | | | At | Signature | + + + + + + | Testosteron | 122.1Comment: Reference | pg/mL | EXTERNAL | | | e, Free, | range: 47 to 244 | | LAB | | | Calculated | | | | | | % | | | | | + + + + + + | Testosteron | 528 | 300 - 1080 | EXTERNAL | | | e, Total, | | ng/dL | LAB | | | LC-MS/MS | | | | | + + + + + + + + | Specimen | + + | Blood specimen | | (specimen) | + + + +---------+ + + | Performing | Address | City/State/Zipcode | Phone Number | | Organization | | | | + +---------+ + + | EXTERNAL LAB | | | | + +---------+ + + Creatinine, Urine, Random (11/09/2016 3:50 PM PDT) + +-------+ + + + | Component | Value | Ref Range | Performed | Pathologist | | | | | At | Signature | + +-------+ + + + | Creatinine, | 47.0 | mg/dL | EXTERNAL | | | Urine | | | LAB | | + +-------+ + + + + + | Specimen | + + | Urine specimen | | (specimen) | + + + +---------+ + + | Performing | Address | City/State/Zipcode | Phone Number | | Organization | | | | + +---------+ + + | EXTERNAL LAB | | | | + +---------+ + + Calcium, Urine, Random (11/09/2016 3:50 PM PDT) + +-------+ + + + | Component | Value | Ref Range | Performed | Pathologist | | | | | At | Signature | + +-------+ + + + | Calcium, | 9.0 | mg/dL | EXTERNAL | | | Urine | | | LAB | | + +-------+ + + + + + | Specimen | + + | Urine specimen | | (specimen) | + + + +---------+ + + | Performing | Address | City/State/Zipcode | Phone Number | | Organization | | | | + +---------+ + + | EXTERNAL LAB | | | | + +---------+ + + Vitamin D, Deficiency Screen (25-Hydroxy) (11/09/2016 3:50 PM PDT) + + + + + + | Component | Value | Ref Range | Performed | Pathologist | | | | | At | Signature | + + + + + + | Vit D, | 17 (L)Comment: <20 ng/mL | 30 - 150 ng/mL | EXTERNAL | | | 25-Hydroxy | Suggests | | LAB | | | | deficiency of 25-OH | | | | | | Vitamin D. 20-29 ng/mL | | | | | | Suggests a relative | | | | | | insufficiency of 25-OH | | | | | | Vitamin D. 30-150 ng/mL | | | | | | Suggests a sufficient | | | | | | level of 25-OH Vitamin | | | | | | D. >150 ng/mL | | | | | | Toxic level of 25-OH | | | | | | Vitamin D. Blood levels | | | | | | of 25 Hydroxy Vitamin D | | | | | | vary with the extent of | | | | | | sun exposure. Values | | | | | | tend to be highest in | | | | | | late summer and lowest | | | | | | in the spring. Values | | | | | | also tend to decrease | | | | | | with age, due to | | | | | | decreased precursor | | | | | | synthesis in the skin. | | | | + + + + + + + + | Specimen | + + | Blood specimen | | (specimen) | + + + +---------+ + + | Performing | Address | City/State/Zipcode | Phone Number | | Organization | | | | + +---------+ + + | EXTERNAL LAB | | | | + +---------+ + + Prolactin (11/09/2016 3:50 PM PDT) + +-------+ + + + | Component | Value | Ref Range | Performed | Pathologist | | | | | At | Signature | + +-------+ + + + | Prolactin | 7.4 | 2.1 - 17.7 | EXTERNAL | | | | | ng/mL | LAB | | + +-------+ + + + + + | Specimen | + + | Blood specimen | | (specimen) | + + + +---------+ + + | Performing | Address | City/State/Zipcode | Phone Number | | Organization | | | | + +---------+ + + | EXTERNAL LAB | | | | + +---------+ + + Estradiol (11/09/2016 3:50 PM PDT) + + + + + + | Component | Value | Ref Range | Performed | Pathologist | | | | | At | Signature | + + + + + + | ESTRADIOL | 35.6 (H) | 0 - 32.2 pg/mL | EXTERNAL | | | | | | LAB | | + + + + + + + + | Specimen | + + | Blood specimen | | (specimen) | + + + +---------+ + + | Performing | Address | City/State/Zipcode | Phone Number | | Organization | | | | + +---------+ + + | EXTERNAL LAB | | | | + +---------+ + + Parathyroid Hormone, Intact (11/09/2016 3:50 PM PDT) + +-------+ + + + | Component | Value | Ref Range | Performed | Pathologist | | | | | At | Signature | + +-------+ + + + | PTH INTACT | 52.5 | 12 - 88 pg/mL | EXTERNAL | | | | | | LAB | | + +-------+ + + + + + | Specimen | + + | Blood specimen | | (specimen) | + + + +---------+ + + | Performing | Address | City/State/Zipcode | Phone Number | | Organization | | | | + +---------+ + + | EXTERNAL LAB | | | | + +---------+ + + Comprehensive Metabolic Panel (11/09/2016 3:50 PM PDT) + + + + + + | Component | Value | Ref Range | Performed | Pathologist | | | | | At | Signature | + + + + + + | Na | 139 | 135 - 145 | EXTERNAL | | | | | mmol/L | LAB | | + + + + + + | K | 4.1 | 3.5 - 4.9 | EXTERNAL | | | | | mmol/L | LAB | | + + + + + + | Cl | 101 | 99 - 109 mmol/L | EXTERNAL | | | | | | LAB | | + + + + + + | CO2 | 29 | 23 - 32 mmol/L | EXTERNAL | | | | | | LAB | | + + + + + + | Anion Gap | 13 | 5 - 20 mmol/L | EXTERNAL | | | | | | LAB | | + + + + + + | Glucose, | 84 | 65 - 99 mg/dL | EXTERNAL | | | Fasting | | | LAB | | + + + + + + | BUN | 16 | 8 - 25 mg/dL | EXTERNAL | | | | | | LAB | | + + + + + + | Creatinine | 0.8 | 0.70 - 1.30 | EXTERNAL | | | | | mg/dL | LAB | | + + + + + + | BUN/Creatin | 20 | | EXTERNAL | | | ine Ratio | | | LAB | | + + + + + + | Calcium | 9.8 | 8.5 - 10.5 | EXTERNAL | | | | | mg/dL | LAB | | + + + + + + | Protein, | 7.8 | 6.3 - 8.2 g/dL | EXTERNAL | | | Total | | | LAB | | + + + + + + | Albumin | 4.8 | 3.6 - 5.0 g/dL | EXTERNAL | | | | | | LAB | | + + + + + + | Globulin | 3.0 | 1.3 - 4.9 g/dL | EXTERNAL | | | | | | LAB | | + + + + + + | A/G Ratio | 1.6 | 1.0 - 2.4 | EXTERNAL | | | | | | LAB | | + + + + + + | Bilirubin | 0.3 | 0.1 - 1.5 mg/dL | EXTERNAL | | | Total | | | LAB | | + + + + + + | ALP, | 66 | 35 - 115 U/L | EXTERNAL | | | External | | | LAB | | + + + + + + | AST | 16 | 10 - 45 U/L | EXTERNAL | | | | | | LAB | | + + + + + + | ALT | 45 | 10 - 65 U/L | EXTERNAL | | | | | | LAB | | + + + + + + | Estimated | >60Comment: GFR <60: | mL/min/1.73_m2 | EXTERNAL | | | GFR | CHRONIC KIDNEY DISEASE, | | LAB | | | | IF FOUND OVER A 3 MONTH | | | | | | PERIOD. GFR <15: KIDNEY | | | | | | FAILURE. FOR | | | | | | AMERICANS, MULTIPLY THE | | | | | | CALCULATED GFR BY 1.210. | | | | + + + + + + + + | Specimen | + + | Blood specimen | | (specimen) | + + + +---------+ + + | Performing | Address | City/State/Zipcode | Phone Number | | Organization | | | | + +---------+ + + | EXTERNAL LAB | | | | + +---------+ + + documented in this encounter Visit Diagnoses Not on filedocumented in this encounter"
--- OUTSIDE RECORDS SUMMARY | ~2020-03-16 | XMS | Encounter Summary ---
Demographics + + + | Address | [address] | | | [place] [address] | + + + | Home Phone | | + + + | Preferred Language | Unknown | + + + | Marital Status | | + + + | Amish Affiliation | Unknown | + + + | Race | Unknown | + + + | Ethnic Group | Unknown | + + + Author + + + | Author | [facility] | | | and [place] | + + + | Organization | [facility] | | [...] [place] | | | | | [address] | | + + + + + Care Team Providers + +------+ + | Care Soaping Machine Back Tender Name | Role | Phone | + [...] | | | [address] | [place] [address] | | | | | [place] [address] | | | | | | [phone] | | | +--------+ + + + [...] | MRI CERVICAL SPINE | Routin | 07/31/2012 | | Results for this | | WO CONTRAST | e | 12:05 AM | | procedure are in the | | | | PST | | results section. | + +--------+ + + + documented in this encounter Results MRI Cervical Spine wo Contrast (07/31/2012 12:05 AM PST) + + | Specimen | [...]
--- OUTSIDE RECORDS SUMMARY | ~2020-03-16 | XMS | Encounter Summary ---
Demographics + + + | Address | [address] | | | [place] [address] | + + + | Home Phone | | + + + | Preferred Language | Unknown | + + + | Marital Status | | + + + | Orthodox Affiliation | Unknown | + + + | Race | Unknown | + + + | Ethnic Group | Unknown | + + + Author + + + | Author | [facility] | | | and [place] | + + + | Organization | [facility] | | | and [...] [place] | | | | | [phone] | | + + + + + Care Team Providers + +------+ + | Care Nonprofit Manager Name | Role | Phone | + +------+ + | Javier Hyman MD | PCP | | + +------+ + Encounter Details +--------+ + + + + | Date | Type | Department | Care Team | Description | +--------+ + + + + | 08/24/ | Imaging | [facility] | Provider, | | | 2020 | Exam | [facility] | MD [facility] [address] | | | | | IMAGING [address] | | | | | [address] | [place] [address] | | | | | [place] [address] | | | | | | [phone] | | | +--------+ + + + [...] + + + | MRI THORACIC SPINE W | Routin | 08/23/2018 | | Results for this | | WO CONTRAST | e | 12:00 AM | | procedure are in the | | | | PST | | results section. | + +--------+ + + + documented in this encounter Results MRI Thoracic Spine w wo Contrast (08/23/2018 12:00 AM PST) + + | Specimen | [...]
--- OUTSIDE RECORDS SUMMARY | ~2020-03-16 | XMS | Encounter Summary ---
Demographics + + + | Address | [address] | | | [place] [address] | + + + | Home Phone [...] + | Author | [facility] | | | and [place] | + + + | Organization | [facility] | | | [...] [place] | | | | | [address] | | + + + + + Care Team Providers + +------+ + | Care Pipeline Dispatcher Name | Role | Phone | + [...] 2019 | | NEUROSURGERY [address] | [address] [place] | | | | | [facility] [address] | [place] [address] | | | | | RAQUEL Roman | [phone] | | | | | [address] | | | | | | [phone] | | | +--------+ + + + [...]
--- OUTSIDE RECORDS SUMMARY | ~2020-03-16 | XMS | Encounter Summary ---
Demographics + + + | Address | [address] | | | [place] [address] | + + + | Home Phone | | + + + | Preferred Language | Unknown | + + + | Marital Status | | + + + | Zoroastrianism Affiliation | Unknown | + + + | Race | Unknown | + + + | Ethnic Group | Unknown | + + + Author + + + | Author | [facility] | | | and [place] | + + + | Organization | [facility] | | [...] [place] | | | | | [address] | | + + + + + Care Team Providers + +------+ + | Care Major Case Detective Name | Role | Phone | + [...] | | | [address] [place] | [place] [address] | | | | | [place] [address] | | | | | | [phone] | | | +--------+ + + + [...]
--- OUTSIDE RECORDS SUMMARY | ~2020-03-16 | XMS | Encounter Summary ---
Demographics + + + | Address | [address] | | | [place] [address] | + + + | Home Phone | | + + + | Preferred Language | Unknown | + + + | Marital Status | | + + + | Religion Affiliation | Unknown | + + + | Race | Unknown | + + + | Ethnic Group | Unknown | + + + Author + + + | Author | [facility] | | | and [place] | + + + | Organization | [facility] | | | and [...] [place] | | | | | [address] | | + + + + + Care Team Providers + +------+ + | Care Dependency Counselor Name | Role | Phone | + [...] | | | [address] [place] | [place] [address] | | | | | [place] [address] | | | | | | [phone] | | | +--------+ + + + [...] + +--------+ + + + | XR THORACIC SPINE 2 | Routin | 02/15/2012 | | Results for this | | VW | e | 12:05 AM | | procedure are in the | | | | PDT | | results section. | + +--------+ + + + documented in this encounter Results XR Thoracic Spine 2 Vw (02/15/2012 12:05 AM PDT) + + | Specimen | [...]
--- OUTSIDE RECORDS SUMMARY | ~2020-03-16 | XMS | Encounter Summary ---
Demographics + + + | Address | [address] | | | [place] [address] | + + + | Home Phone [...] [place] | | | | | [address] | | + + + + + Care Team Providers + +------+ + | Care Lubrication Technician Name | Role | Phone | [...] | | | [address] [place] | [place] [address] | | | | | [place] [address] | | | | | | [phone] | | | +--------+ + + + [...] + +--------+ + + + | XR CERVICAL SPINE 4 | Routin | 07/17/2012 | | Results for this | | OR 5 VWS | e | 12:00 AM | | procedure are in the | | | | PST | | results section. | + +--------+ + + + documented in this encounter Results XR Cervical Spine 4 or 5 Vws (07/17/2012 12:00 AM PST) + + | Specimen [...]
--- OUTSIDE RECORDS SUMMARY | ~2020-03-16 | XMS | Encounter Summary ---
Demographics + + + | Address | [address] | | | [place] [address] | + + + | Home Phone | | + + + | Preferred Language | Unknown | + + + | Marital Status | | + + + | Moravian Affiliation | Unknown | + + + [...] [place] | | | | | [address] | | + + + + + Care Team Providers + +------+ + | Care Manager Heart Failure Name | Role | Phone | + [...] | | | [address] [place] | [place] [address] | | | | | [place] [address] | | | | | | [phone] | | | +--------+ + + + [...] | | WO CONTRAST | e | 12:10 AM | | procedure are in the | | | | PST | | results section. | + +--------+ + + + documented in this encounter Results MRI Thoracic Spine wo Contrast (07/31/2012 12:10 AM PST) + + | Specimen | [...]
--- OUTSIDE RECORDS SUMMARY | ~2020-03-16 | XMS | Encounter Summary ---
Demographics + + + | Address | [address] | | | [place] [address] | + + + | Home Phone | | + + + | Preferred Language | Unknown | + + + | Marital Status | | + + + | Orthodoxy Affiliation | Unknown | + + + | Race | Unknown | + + + | Ethnic Group | Unknown | + + + Author + + + | Author | [facility] | | | and [place] | + + + | Organization | [facility] | | | [...] [place] | | | | | [address] | | + + + + + Care Team Providers + +------+ + | Care Campus Wellness Coordinator Name | Role | Phone | + +------+ + | Christina Alan | PCP | | + +------+ + Reason for Referral Diagnostic/Screening (Routine) +--------+--------+ + + + + | Status | Reason | Specialty | Diagnoses / | Referred By | Referred To | | | | | Procedures | Contact | Contact | +--------+--------+ + + + + | Closed | | Radiology | Diagnoses | [place], | [facility] | | | | | Thoracic | [facility] | [facility] | | | | | spine pain | [address] [facility] [address] | | | | | Procedures | [address] | | | | | MRI Thoracic | [address] [place] | [place], [place] | | | | | Spine wo | [place], [place] | [address] | | | | | Contrast | [address] | Phone: | | | | | | Phone: | [phone] | | | | | | [phone] | Fax: | | | | | | Fax: | [phone] | | | | | | [phone] | | +--------+--------+ + + + + Reason for Visit Auth/Cert +--------+--------+ + + + + | Status | Reason | Specialty | Diagnoses / | Referred By | Referred To | | | | | Procedures | Contact | Contact | +--------+--------+ + + + + | | | | | | | +--------+--------+ + + + + Encounter Details +--------+ + + + + | Date | Type | Department | Care Team | Description | +--------+ + + + + | 09/19/ | Hospital | [facility] | Christina Alan FNP | Thoracic spine pain | | 2020 | Encounter | MED CTR MRI [address] | [address] | | | | | [place], | [place], [place] | | | | | [place] [address] | [address] | | | | | [phone] | | | | | | | [facility] | | | | | | [address] | | +--------+ + + + + [...] + + + | Blood Pressure | 127/74 | 09/19/2019 1:05 PM | | | | | PST | | + + + + + | Pulse | 90 | 09/19/2019 1:05 PM | | | | | PST | | + + + + + | Temperature | 36.3 C (97.3 F) | 09/19/2019 11:01 AM | | | | | PST | | + + + + + | Respiratory Rate | 16 | 09/19/2019 1:05 PM | | | | | PST | | + + + + + | Oxygen Saturation | 96% | 09/19/2019 1:05 PM | | | | | PST | | + + + + + | Inhaled Oxygen | - | - | | | Concentration | | | | + + + + + | Weight | 81.6 kg (180 lb) | 09/19/2019 11:01 AM | | | | | PST | | + + + + + | Height | 188 cm (6' 2") | 09/19/2019 11:01 AM | | | | | PST | | + + + + + | Body Mass Index | 23.11 | 09/19/2019 11:01 AM | | | | | PST | | + + + + + documented in this encounter Medications at Time of Discharge + + + +---------+--------+ + | Medication | Sig | Dispensed | Refills | Start | End Date | | | | | | Date | | + + + +---------+--------+ + | Fish Oil 1000 MG | Take 1,000 mg by | | 0 | | | | delayed release | mouth as needed. | | | | | | capsule | | | | | | + + + +---------+--------+ + | Cholecalciferol | Take 2,000 Units by | | 0 | | | | (VITAMIN D PO) | mouth. | | | | 0 | + + + +---------+--------+ + documented as of this encounter H&P Notes Wil Eubanks MD - 09/19/2019 12:00 PM PSTSurgical Interim History & Physical Update Pt. Name/Age/: Davy Clayton 38 y.o. 1980 Date of Admission: 09/19/2019 The current H&P was reviewed. The patient was reexamined. Re-evaluation of the patient co nfirms the necessity for the scheduled procedure. No change has occurred in the patient s condition since the H&P was completed less than 30 days ago. Mallampati Class 1 (can visualize the entire tonsil) [place] [employer] of Anesthesia Grade:ASA 1 - A normal healthy patient Sedation Plan:Moderate VERIFICATION OF CONSENT (PARQ) The patient was counseled regarding the procedure, its indications, risks, potential compli cations and alternatives. Any questions were answered. Consent was obtained. Wil Eubanks MD, 09/19/2019 12:03 PM [facility] documented in this en counter Miscellaneous Notes Sedation Documentation - Lila Healy RN - 09/19/2019 1:09 PM PSTAll charting has been reviewed and verified by Lila Galloway RN edation Documentation - Treasure Barrios Technologist - 09/19/2019 12:00 PM PSTBy: Licensed provider Mallampati: I (tonsillar pillars, fauces, uvula, and soft palate) ASA Score: ASA 1 - normal healthy Sedation Plan: Moderate edation D ocumentation - Treasure Barrios Technologist - 09/19/2019 11:52 AM PSTDocumentation for pro cedural sedation done by *Treasure Barrios* for procedure nurse *Lila Galloway*.Suzanna coy signed by Technologist Jennifer at 09/19/2019 11:59 AM PSTdocumented in this e ncounter Plan of Treatment Not on filedocumented as of this encounter Procedures + +--------+ + + + | Procedure Name | Priori | Date/Time | Associated Diagnosis | Comments | | | ty | | | | + +--------+ + + + | MRI THORACIC SPINE | Routin | 09/19/2019 | Thoracic spine | Results for this | | WO CONTRAST | e | 12:58 PM | pain | procedure are in the | | | | PST | | results section. | + +--------+ + + + documented in this encounter Results MRI Thoracic Spine wo Contrast (09/19/2019 12:58 PM PST) + + | Specimen | + + | | + + + + + | Impressions | Performed At | + + + | Small central/right paracentral disc protrusion causing indentation | [facility] | | and subtle mass effect on the ventral thoracic cord at T7-T8. Thecal | | | sac is mildly narrowed measuring 9 mm in midline AP dimension. No | | | significant neural foraminal narrowing. Small central disc | | | protrusion causes mass effect and indentation on the ventral thoracic | | | cord at T6-T7. Thecal sac is narrowed measuring 8.1 mm in midline AP | | | dimension. Neural foramen remain patent. Multilevel Schmorl's | | | nodes at T7, T8, T9, T10, and T11 with a few levels of subtle | | | anterior wedging of the T7, T8, and T9 vertebral bodies. Findings may | | | represent Scheuermann's disease. Dictated and Signed by: Wil | | | MD Raimundo Electronically signed: 09/19/2019 1:49 PM | | + + + + + + | Narrative | Performed At | + + + | MRI THORACIC SPINE WO CONTRAST 09/19/2019 12:40 PM HISTORY: pain | [facility] | | in thoracic spine. COMPARISON: 08/23/2018 PROTOCOL: Sagittal T2, | | | sagittal T1, sagittal STIR, axial T2. FINDINGS: Disc | | | heights are generally maintained. Multilevel Schmorl's nodes at T7, | | | T8, T9, T10, and T11 with a few levels of subtle anterior wedging of | | | the T7, T8, and T9 vertebral bodies. Findings may represent | | | Scheuermann's disease. Posterior disc bulges are seen at a few | | | levels as detailed below. T5-T6: Mild costovertebral and facet | | | spondylosis causes borderline mild bilateral neural foraminal | | | narrowing. T6-T7: Small central disc protrusion causes mass effect | | | and indentation on the ventral thoracic cord at T6-T7. Thecal sac is | | | narrowed measuring 8.1 mm in midline AP dimension. Neural foramen | | | remain patent. No significant cord signal changes. T7-T8: Small | | | central/right paracentral disc protrusion causing indentation and | | | subtle mass effect on the ventral thoracic cord at T7-T8. Thecal sac | | | is mildly narrowed measuring 9 mm in midline AP dimension. No | | | significant neural foraminal narrowing. T8-T9: Right | | | costovertebral spondylosis causes borderline/minimal right-sided | | | neural foraminal narrowing. Imaged spinal cord shows normal signal | | | with no evidence for myelomalacia or mass lesions. Imaged chest | | | and upper abdomen demonstrate no acute findings. | | + + + + + | Procedure Note | + + | Rahul, Rad Results In - 09/19/2019 1:52 PM PST MRI THORACIC SPINE WO CONTRAST 09/19/2019 | | 12:40 PM HISTORY: pain in thoracic spine.COMPARISON: 08/23/2018PROTOCOL: Sagittal T2, | | sagittal T1, sagittal STIR, axial T2.FINDINGS: Disc heights are generally maintained. | | Multilevel Schmorl's nodes at T7, T8,T9, T10, and T11 with a few levels of subtle | | anterior wedging of the T7, T8, andT9 vertebral bodies. Findings may represent | | Scheuermann's disease. Posteriordisc bulges are seen at a few levels as detailed | | below.T5-T6: Mild costovertebral and facet spondylosis causes borderline mildbilateral | | neural foraminal narrowing.T6-T7: Small central disc protrusion causes mass effect and | | indentation on theventral thoracic cord at T6-T7. Thecal sac is narrowed measuring 8.1 | | mm inmidline AP dimension. Neural foramen remain patent. No significant cord | | signalchanges.T7-T8: Small central/right paracentral disc protrusion causing indentation | | andsubtle mass effect on the ventral thoracic cord at T7-T8. Thecal sac is | | mildlynarrowed measuring 9 mm in midline AP dimension. No significant neural | | foraminalnarrowing.T8-T9: Right costovertebral spondylosis causes borderline/minimal | | right-sidedneural foraminal narrowing.Imaged spinal cord shows normal signal with no | | evidence for myelomalacia or masslesions.Imaged chest and upper abdomen demonstrate no | | acute findings.IMPRESSION: Small central/right paracentral disc protrusion causing | | indentation and subtlemass effect on the ventral thoracic cord at T7-T8. Thecal sac is | | mildly narrowedmeasuring 9 mm in midline AP dimension. No significant neural | | foraminalnarrowing.Small central disc protrusion causes mass effect and indentation on | | the ventralthoracic cord at T6-T7. Thecal sac is narrowed measuring 8.1 mm in midline | | APdimension. Neural foramen remain patent.Multilevel Schmorl's nodes at T7, T8, T9, T10, | | and T11 with a few levels ofsubtle anterior wedging of the T7, T8, and T9 vertebral | | bodies. Findings mayrepresent Scheuermann's disease.Dictated and Signed by: Wil | | MD Raimundo Electronically signed: 09/19/2019 1:49 PM | |narrowing. | | | |T8-T9: Right costovertebral spondylosis causes borderline/minimal right-sided | |neural foraminal narrowing. | | | |Imaged spinal cord shows normal signal with no evidence for myelomalacia or mass | |lesions. | | | |Imaged chest and upper abdomen demonstrate no acute findings. | | | |IMPRESSION: | |Small central/right paracentral disc protrusion causing indentation and subtle | |mass effect on the ventral thoracic cord at T7-T8. Thecal sac is mildly narrowed | |measuring 9 mm in midline AP dimension. No significant neural foraminal | |narrowing. | | | |Small central disc protrusion causes mass effect and indentation on the ventral | |thoracic cord at T6-T7. Thecal sac is narrowed measuring 8.1 mm in midline AP | |dimension. Neural foramen remain patent. | | | |Multilevel Schmorl's nodes at T7, T8, T9, T10, and T11 with a few levels of | |subtle anterior wedging of the T7, T8, and T9 vertebral bodies. Findings may | |represent Scheuermann's disease. | | | |Dictated and Signed by: Wil Eubanks MD | | Electronically signed: 09/19/2019 1:49 PM | + + + +---------+ + + | Performing | Address | City/State/Zipcode | Phone Number | | Organization | | | | + +---------+ + + | [facility] | | | | + +---------+ + + documented in this encounter Visit Diagnoses + + | Diagnosis | + + | Thoracic spine pain Pain in thoracic spine | + + documented in this encounter Administered Medications + +--------+ +--------+------+------+ | Medication Order | MAR | Action | Dose | Rate | Site | | | Action | Date | | | | + +--------+ +--------+------+------+ | fentaNYL (PF) injection PRN, | Given | 09/19/19 | 50 mcg | | | | Starting 09/19/19 at 1220 | | 20 12:36 | | | | | | | PM PST | | | | + +--------+ +--------+------+------+ +-------+ +--------+---+---+ | Given | 09/19/19 | 50 mcg | | | | | 20 12:24 | | | | | | PM PST | | | | +-------+ +--------+---+---+ | Given | 09/19/19 | 50 mcg | | | | | 20 12:20 | | | | | | PM PST | | | | +-------+ +--------+---+---+ +---+---+ | | | +---+---+ + +-------+ +------+---+---+ | midazolam (VERSED) 1 mg/mL | Given | 09/19/19 | 1 mg | | | | injection PRN, Starting Wed | | 20 12:59 | | | | | 09/19/19 at 1212 | | PM PST | | | | + +-------+ +------+---+---+ +-------+ +------+---+---+ | Given | 09/19/19 | 2 mg | | | | | 20 12:34 | | | | | | PM PST | | | | +-------+ +------+---+---+ | Given | 09/19/19 | 1 mg | | | | | 20 12:28 | | | | | | PM PST | | | | +-------+ +------+---+---+ +---+---+ | | | +---+---+ documented in this encounter
--- OUTSIDE RECORDS SUMMARY | ~2020-03-16 | XMS | Encounter Summary ---
Demographics + + + | Address | [address] | | | [place] [address] | + + + | Home Phone | | + + + | Preferred Language | Unknown | + + + | Marital Status | | + + + | Rastafari Affiliation | Unknown | + + + | Race | Unknown | + + + | Ethnic Group | Unknown | + + + Author + + + | Author | [facility] | | | and [place] | + + + | Organization | [facility] | | [...] [place] | | | | | [address] | | + + + + + Care Team Providers + +------+ + | Care Medical Record Specialist Name | Role | Phone | + +------+ + | Javier Hyman MD | PCP | | + +------+ + Encounter Details +--------+ + + + + | Date | Type | Department | Care Team | Description | +--------+ + + + + | 09/13/ | Hospital | [facility] | Conversion | Pain | | 2014 | Encounter | CONVERSION [address] | Transaction, | | | | | [address] | Provider Unknown | | | | | [place], [place] | [phone] | | | | | [address] | | | | | | [phone] | | | +--------+ + + + [...] + + + | XR CERVICAL SPINE 2 | Routin | 07/17/2012 | | Results for this | | OR 3 VIEWS | e | 5:45 AM | | procedure are in the | | | | PST | | results section. | + +--------+ + + + documented in this encounter Results XR Cervical Spine 2 or 3 Views (07/17/2012 5:45 AM PST) + + | Specimen [...]
--- OUTSIDE RECORDS SUMMARY | ~2020-03-16 | XMS | Encounter Summary ---
Demographics + + + | Address | [address] | | | [place] [address] | + + + | Home Phone | | + + + | Preferred Language | Unknown | + + + | Marital Status | | + + + | Congregational Affiliation | Unknown | + + + | Race | Unknown | + + + | Ethnic Group | Unknown | + + + Author + + + | Author | [facility] | | | and [place] | + + + | Organization | [facility] | | [...] [place] | | | | | [address] | | + + + + + Care Team Providers + +------+ + | Care Rn Referral Name | Role | Phone | + +------+ + | Christina Alan | PCP | | + +------+ + Encounter Details +--------+ + + + + | Date | Type | Department | Care Team | Description | +--------+ + + + + | 02/14/ | Hospital | [facility] | Christina Alan, SANITARY CHEMIST | Canceled (OTHER) | | 2019 | Encounter | MED CTR NUCLEAR | [address] | | | | | MEDICINE [address] | [place], [place] | | | | | [place], | [address] | | | | | [place] [address] | | | | | | [phone] | | | +--------+ + + + [...]
--- OUTSIDE RECORDS SUMMARY | ~2020-03-16 | XMS | Encounter Summary ---
Demographics + + + | Address | [address] | | | [place] [address] | + + + | Home Phone | | + + + | Preferred Language | Unknown | + + + | Marital Status | | + + + | Mandaeism Affiliation | Unknown | + + + | Race | Unknown | + + + | Ethnic Group | Unknown | + + + Author + + + | Author | [facility] | | | and [place] | + + + | Organization | [facility] | | [...] [place] | | | | | [address] | | + + + + + Care Team Providers + +------+ + | Care Editor In Chief Name | Role | Phone | + +------+ + | Javier Hyman MD | PCP | | + +------+ + Encounter Details +--------+ + + + + | Date | Type | Department | Care Team | Description | +--------+ + + + + | 12/20/ | Hospital | [facility] | Conversion | | | 2017 | Encounter | [facility] | Transaction, | | | | | NUCLEAR MEDICINE | Provider Unknown | | | | | [address] | | | | | | [place], [place] | (Fax) | | | | | [address] | | | | | | [phone] | | | +--------+ + + + [...]
--- OUTSIDE RECORDS SUMMARY | ~2020-03-16 | XMS | Encounter Summary ---
Demographics + + + | Address | [address] | | | [place] [address] | + + + | Home Phone | | + + + | Preferred Language | Unknown | + + + | Marital Status | | + + + | Mu-Ism Affiliation | Unknown | + + + | Race | Unknown | + + + | Ethnic Group | Unknown | + + + Author + + + | Author | [facility] | | | and [place] | + + + | Organization | [facility] | | | [...] [place] | | | | | [address] | | + + + + + Care Team Providers + +------+ + | Care Granite Polisher Machine Name | Role | Phone | + +------+ + | Javier Hyman MD | PCP | | + +------+ + Encounter Details +--------+ + + + + | Date | Type | Department | Care Team | Description | +--------+ + + + + | 09/17/ | Abstract | [facility] | Provider, | | | 2019 | | PHYSIATRY [address] | [address] | | | | | [address] | [address] | | | | | AJAY MOSS MD | [place] [address] | | | | | [address] | | | | | | [phone] | | | +--------+ + + + [...]
--- OUTSIDE RECORDS SUMMARY | ~2020-03-16 | XMS | Encounter Summary ---
Demographics + + + | Address | [address] | | | [place] [address] | + + + | Home Phone | | + + + | Preferred Language | Unknown | + + + | Marital Status | | + + + | Mormon Affiliation | Unknown | + + + | Race | Unknown | + + + | Ethnic Group | Unknown | + + + Author + + + | Author | [facility] | | | and [place] | + + + | Organization | [facility] | | | and [...] [place] | | | | | [address] | | + + + + + Care Team Providers + +------+ + | Care Postal Transportation Clerk Name | Role | Phone | + +------+ + | Christina Alan | PCP | | + +------+ + Reason for Visit + +--------+ + | Reason | Onset | Comments | | | Date | | + +--------+ + | Coordination Of Care | 01/28/ | | | | 2019 | | + +--------+ + Encounter Details +--------+ + + + + | Date | Type | Department | Care Team | Description | +--------+ + + + + | 01/28/ | Telephone | [facility] | Lisa García MD | Coordination Of Care | | 2019 | | [facility] [address] | [address] | | | | | [facility] [address] | [place] [address] | | | | | [place], [place] | [phone] | | | | | [address] | | | | | | [phone] | | | +--------+ + + + [...] + + documented as of this encounter Miscellaneous Notes Telephone Encounter - Aurora Huang - 02/20/2020 9:37 AM PDTNo call back as of yet. I'm closing the staff message. elephone Encounter - Aurora Huang - 02/14/2020 1:42 PM PDTLVM 02/13 regar ding scheduling VV or in person OV. There is a staff message open if patient does call to s torie. elephone En counter - Aurora Huang - 02/13/2020 2:33 PM PDTI called patient to see if he wants to schedule an appt, either in person or VV, and VM is not set up. elephone Encounter - Jasmin Velez RN - 01/13 11:19 AM PDTReceived a call from Christina Alan inquiring what the plan was for him. Adv ised that from the last note, he was suppose to call us if his symptoms changed and he was s uppose to have a chest CT if his XR was non-diagnostic and he was still having symptoms. Pre vious notes indicate he was wanting to hold off on scheduling due to covid. He said that the Dr García was wanting to do surgery. I advised that I didn't see that in the note, but since I didn't actually see the patient or have a conversation with Dr García, I couldn't be for ruslan thakur. At this point we are waiting for the patient to reschedule. documented in this encounter Plan of Treatment Not on filedocumented as of this encounter Visit Diagnoses Not on filedocumented in this encounter"
--- OUTSIDE RECORDS SUMMARY | ~2020-03-16 | XMS | Encounter Summary ---
Demographics + + + | Address | [address] | | | [place] [address] | + + + | Home Phone | | + + + | Preferred Language | Unknown | + + + | Marital Status | | + + + | Mormonism Affiliation | Unknown | + + + | Race | Unknown | + + + | Ethnic Group | Unknown | + + + Author + + + | Author | [facility] | | | and [place] | + + + | Organization | [facility] | | [...] [place] | | | | | [address] | | + + + + + Care Team Providers + +------+ + | Care Demo Coordinator Name | Role | Phone | [...] appt. Open to virtual visit; lives in [place]. | + +--------+ + Encounter Details +--------+ + + + + | Date | Type | Department | Care Team | Description | +--------+ + + + + | 12/03/ | Telephone | [facility] | Lisa García MD | Follow-up (returned | | 2019 | | NEUROSURGERY [address] | [address] | call checkin on him, | | | | [address] [facility] [address] | [place] [address] | waiting to schedule | | | | [place] | [phone] | another appt. Open | | | | [address] | | to virtual visit; | | | | [phone] | | lives in [place]. ) | +--------+ + + + + [...] him before then, as he lives in [place]. He said he is in no espinosa. He said said his iss ues are just more of a nuisance. documented in this encounter Plan of Treatment Not on filedocumented as of this encounter Visit Diagnoses Not on filedocumented in this encounter"
--- OUTSIDE RECORDS SUMMARY | ~2020-03-16 | XMS | Encounter Summary ---
Demographics + + + | Address | [address] | | | [place] [address] | + + + | Home Phone | | + + + | Preferred Language | Unknown | + + + | Marital Status | | + + + | Anabaptism Affiliation | Unknown | + + + | Race | Unknown | + + + | Ethnic Group | Unknown | + + + Author + + + | Author | [facility] | | | and [place] | + + + | Organization | [facility] | | | [...] [place] | | | | | [address] | | + + + + + Care Team Providers + +------+ + | Care Asset Protection Specialist Name | Role | Phone | + +------+ + | Christina Alan | PCP | | + +------+ + Reason for Visit + + + | Reason | Comments | + + + | Pain Management | intial encounter | + + + Encounter Details +--------+ + + + + | Date | Type | Department | Care Team | Description | +--------+ + + + + | 10/23/ | Documentati | [facility] | Lisa García MD | Pain Management | | 2020 | on | NEUROSURGERY [address] | [address] | (intial encounter) | | | | [address] | [place] [address] | | | | | [place] | [phone] | | | | | [address] | | | | | | [phone] | | | +--------+ + + + [...] documented as of this encounter Progress Notes Marissa Pretty Cert MA - 10/24/2019 7:51 AM PDT [place] CUE WORKER was checked on 10/24/19 and no medications have been dispensed in the last 3 months. documented in this e ncounter Plan of Treatment Not on filedocumented as of this encounter Visit Diagnoses Not on filedocumented in this encounter"
--- OUTSIDE RECORDS SUMMARY | ~2020-03-16 | XMS | Encounter Summary ---
Demographics + + + | Address | [address] | | | [place] [address] | + + + | Home Phone | | + + + | Preferred Language | Unknown | + + + | Marital Status | | + + + | Orthodoxy Affiliation | Unknown | + + + | Race | Unknown | + + + | Ethnic Group | Unknown | + + + Author + + + | Author | [facility] | | | and [place] | + + + | Organization | [facility] | | [...] [place] | | | | | [address] | | + + + + + Care Team Providers + +------+ + | Care Herbarium Worker Name | Role | Phone | [...] + + | 09/28/ | Office | [facility] | Josh Byrne | Organic insomnia, | | 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 Please follow the instructions below to view your [employer] online medical record. [employer] allows you to send secure messages to your doctor, view you r test results, renew your prescriptions, schedule appointments, and more. How Do I Sign Up? 1. In your Internet browser, go to [email or web address] 2. Click on the Sign Up Now link in the Sign In box.This will take you to the New Member Si gn Up page. 3. Enter your [employer] access code exactly as it appears below. You will not need to use thi s code after you sign up. If you do not sign up before the expiration date, you must request a new code through your [facility]. [employer] Access Code: [email or web address] Expires: 11/27/2012 13:17 4. Fill in the last four digits of your Social Security Number (xxxx) and Date of (mm /dd/yyyy) when asked and click Submit. You will now be asked to create a [employer] ID. 5. Create a Seegrid Corpt ID. This will be your [employer] login ID. Your login ID cannot be changed , so think of one that is secure and easy to remember. 6. Create a [employer] password. You can change your password at any time. 7. Enter your Password Reset Question and Answer. This can be used at a later time if you f orget your password. 8. Enter your e-mail address. You will receive e-mail notification when new information is available in [employer]. 9. Click Sign Up. You may now view your medical record. Additional Information If you have questions, you can email [email or web address] or call [phone] to talk to our MyChart care team. Please remember, MyChart should NOT be used fo r urgent needs. For all medical emergencies, call 911. Sincerely, Josh Byrne MD documented in this encounter Progress Notes Josh Byrne Jr., MD - 09/28/2012 1:31 PM PSTFormatting of this note might be differen t from the original. 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 The [facility] in [place], I believe, does offer this therapy. I [...] strongly recommend formal therapy, possibly through the [facility] in [place], for PTSD 4) I question whether another [...] Insomnia Severity Index Insomnia Severity Index 22 [place] Sleepiness Scale Sitting and reading 0 Watching [...]
--- OUTSIDE RECORDS SUMMARY | ~2020-03-16 | XMS | Encounter Summary ---
Demographics + + + | Address | [address] | | | [place] [address] | + + + | Home Phone | | + + + | Preferred Language | Unknown | + + + | Marital Status | | + + + | Church Affiliation | Unknown | + + + | Race | Unknown | + + + | Ethnic Group | Unknown | + + + Author + + + | Author | [facility] | | | and [place] | + + + | Organization | [facility] | | | [...] [place] | | | | | [address] | | + + + + + Care Team Providers + +------+ + | Care Oncology Consultant Name | Role | Phone | + [...] | | | Pain in | Christina, SCHOOL HEALTH ASSISTANT | Neurosurgery | | | | | thoracic | [address] | | | | | spine | [address] | | | | | | [address] [place] | [place], | | | | | | [place], [place] | [place] [address] | | | | | | [address] | Phone: | | | | | | Phone: | [phone] | | | | | | [phone] | Fax: | | | | | | Fax: | [phone] | | | | | | [phone] | | + +--------+ + + + + Encounter Details +--------+---------+ + + + | Date | Type | Department | Care Team | Description | +--------+---------+ + + + | 10/23/ | Office | [facility] | Lisa García MD | Chest wall pain | | 2020 | Visit | NEUROSURGERY [address] | [address] | (Primary Dx) | | | | [address] | [place] [address] | | | | | [place], [place] | [phone] | | | | | [address] | | | | | | [phone] | | | +--------+---------+ + + + [...] fragranced lotions to your appointments here at [facility]. Thank you! Please get the injection ordered by Nathalie Gilbert PA-C. If the injection doesn't work the n contact our office and we will have you complete the chest x-ray. documented in this encounter Progress Notes Lisa García MD - 10/24/2019 10:10 AM PDTFormatting of this note might be different from t he original. Neurosurgical Consultation [place], [place]. Patient: Davy Clayton : 1980: Age: 38 y.o. MedRec: [id number] Physician author: Lisa García MD Today: 10/24/2019 [...] Coordination: There is no dysmetria noted on idoove-gz-ykrk testing and no gait ataxia. Th e [...] by: Lisa García MD 10/24/2019 8:37 AM [facility] Portions of this chart may have been created with 99Bill voice recognition software. Occasi onal wrong-word or [...]
--- OUTSIDE RECORDS SUMMARY | ~2020-03-16 | XMS | Encounter Summary ---
Demographics + + + | Address | [address] | | | [place] [address] | + + + | Home Phone | | + + + | Preferred Language | Unknown | + + + | Marital Status | | + + + | Lutheran Affiliation | Unknown | + + + [...] [place] | | | | | [address] | | + + + + + Care Team Providers + +------+ + | Care Truss Puller Helper Name | Role | Phone | [...] | | | [address] [place] | [place] [address] | | | | | [place] [address] | | | | | | [phone] | | | +--------+ + + + [...]
--- OUTSIDE RECORDS SUMMARY | ~2020-03-16 | XMS | Encounter Summary ---
Demographics + + + | Address | [address] | | | [place] [address] | + + + | Home Phone | | + + + | Preferred Language | Unknown | + + + | Marital Status | | + + + | Congregation Affiliation | Unknown | + + + | Race | Unknown | + + + | Ethnic Group | Unknown | + + + Author + + + | Author | [facility] | | | and [place] | + + + | Organization | [facility] | | [...] [place] | | | | | [address] | | + + + + + Care Team Providers + +------+ + | Care House Supervisor Name | Role | Phone | + +------+ + | Javier Hyman MD | PCP | | + +------+ + Encounter Details +--------+ + + + + | Date | Type | Department | Care Team | Description | +--------+ + + + + | 12/20/ | Hospital | [facility] | Conversion | | | 2017 | Encounter | [facility] | Transaction, | | | | | NUCLEAR MEDICINE | Provider Unknown | | | | | [address] | | | | | | [place], [place] | (Fax) | | | | | [address] | | | | | | [phone] | | | +--------+ + + + [...]
--- OUTSIDE RECORDS SUMMARY | ~2020-03-16 | XMS | Encounter Summary ---
Demographics + + + | Address | [address] | | | [place] [address] | + + + | Home Phone | | + + + | Preferred Language | Unknown | + + + | Marital Status | | + + + | Worship Affiliation | Unknown | + + + [...] [place] | | | | | [address] | | + + + + + Care Team Providers + +------+ + | Care Health Information Technologist Name | Role | Phone | + +------+ + | Christina Alan | PCP | | + +------+ + Encounter Details +--------+ + + + + | Date | Type | Department | Care Team | Description | +--------+ + + + + | 02/08/ | Transcribed | [facility] | Christina Alan FNP | Cardiac arrhythmia, | | 2019 | Orders | MED CTR | [address] | unspecified cardiac | | | | ELECTRODIAGNOSTICS | [place] | arrhythmia type | | | | [address] [place] | [address] | (Primary Dx) | | | | [place] [address] | | | | | | [phone] | | | +--------+ + + + [...]
--- OUTSIDE RECORDS SUMMARY | ~2020-03-16 | XMS | Encounter Summary ---
Demographics + + + | Address | [address] | | | [place] [address] | + + + | Home Phone | | + + + | Preferred Language | Unknown | + + + | Marital Status | | + + + | Confucianism Affiliation | Unknown | + + + | Race | Unknown | + + + | Ethnic Group | Unknown | + + + Author + + + | Author | [facility] | | | and [place] | + + + | Organization | [facility] | | [...] [place] | | | | | [address] | | + + + + + Care Team Providers + +------+ + | Care Exchange Operator Name | Role | Phone | [...] Provider Unknown | | | | | [place], [place] | [phone] | | | | | [address] | | | | | | [phone] | | | +--------+ + + + [...]
--- OUTSIDE RECORDS SUMMARY | ~2020-03-16 | XMS | Encounter Summary ---
Demographics + + + | Address | [address] | | | [place] [address] | + + + | Home Phone | | + + + | Preferred Language | Unknown | + + + | Marital Status | | + + + | Mandaen Affiliation | Unknown | + + + [...] [place] | | | | | [address] | | + + + + + Care Team Providers + +------+ + | Care Interventional Physician Name | Role | Phone | + +------+ + | Javier Hyman MD | PCP | | + +------+ + Encounter Details +--------+ + + + + | Date | Type | Department | Care Team | Description | +--------+ + + + + | 12/21/ | Hospital | [facility] | Conversion | | | 2017 | Encounter | [facility] | Transaction, | | | | | NUCLEAR MEDICINE | Provider Unknown | | | | | [address] | | | | | | [place], [place] | (Fax) | | | | | [address] | | | | | | [phone] | | | +--------+ + + + [...]
--- OUTSIDE RECORDS SUMMARY | ~2020-03-16 | XMS | Encounter Summary ---
Demographics + + + | Address | [address] | | | [place] [address] | + + + | Home Phone | | + + + | Preferred Language | Unknown | + + + | Marital Status | | + + + | Amish Affiliation | Unknown | + + + | Race | Unknown | + + + | Ethnic Group | Unknown | + + + Author + + + | Author | [facility] | | | and [place] | + + + | Organization | [facility] | | | [...] [place] | | | | | [address] | | + + + + + Care Team Providers + +------+ + | Care Reinforcing Rod Layer Name | Role | Phone | + +------+ + | Javier Hyman MD | PCP | | + +------+ + Encounter Details +--------+ + + + + | Date | Type | Department | Care Team | Description | +--------+ + + + + | 10/10/ | Documentati | [facility] | Josh Byrne | | | 2012 | on | SLEEP DISORDER [address] | MD Alis [address] | | | | | [address] [place] | [address] [place] | | | | | [place] [address] | [place] [address] | | | | | [phone] | [phone] | | | | | | | [...]
--- OUTSIDE RECORDS SUMMARY | ~2020-03-16 | XMS | Encounter Summary ---
Demographics + + + | Address | [address] | | | [place] [address] | + + + | Home Phone | | + + + | Preferred Language | Unknown | + + + | Marital Status | | + + + | Confucianist Affiliation | Unknown | + + + | Race | Unknown | + + + | Ethnic Group | Unknown | + + + Author + + + | Author | [facility] | | | and [place] | + + + | Organization | [facility] | | | [...] [place] | | | | | [address] | | + + + + + Care Team Providers + +------+ + | Care Jordan Man Name | Role | Phone | + +------+ + | Javier Hyman MD | PCP | | + +------+ + Encounter Details +--------+ + + + + | Date | Type | Department | Care Team | Description | +--------+ + + + + | 09/13/ | Hospital | [facility] | Conversion | Pain | | 2014 | Encounter | CONVERSION [address] | Transaction, | | | | [address] | Provider Unknown | | | | | [place], [place] | [phone] | | | | | [address] | | | | | | [phone] | | | +--------+ + + + [...]
[~2020-03-16 17:27] MED LIST changes: +METOPROLOL SUCC25 MG PO
--- OUTSIDE RECORDS SUMMARY | 2020-03-16 17:30 | XMS ---
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 [facility] has no Care Guidelines for this patient. Kathrin VISIT COUNT (12 MO.) 1 JANES Avelar TOTAL 1 NOTE: Visits indicate total known visits. ED/C VISIT TRACKING (12 MO.) 03/16/2020 17:28 JANES Dotson OR TYPE: Emergency COMPLAINT: - ANKLE INJ INPATIENT VISIT TRACKING (12 MO.) No inpatient visits to display in this time frame [email or web address]
[2020-03-16] MEDS ORDERED: NORCO 5-325 TA1 EACH PO (18:46)
[2020-03-16] MEDS ORDERED: CRUTCH1 EACH MISC (18:46)
== END 2020-03-16 19:12 | disposition home or self-care (01) ==
LOC: ED 17:27
DX: S82.832A Other fracture of upper and lower end of left fibula, initial encounter for closed fracture (principal); S93.402A Sprain of unspecified ligament of left ankle, initial encounter; Z87.891 Personal history of nicotine dependence; Z88.8 Allergy status to other drugs, medicaments and biological substances; X58.XXXA Exposure to other specified factors, initial encounter
CPT/HCPCS: 73610; 99283-25

== ENCOUNTER 2020-03-19 12:30 | Emergency (ER) | payer OTHER ==
[~2020-03-19] VITALS: Ht 188 cm; Wt 81.7 kg
--- OUTSIDE RECORDS SUMMARY | ~2020-03-19 | XMS | Encounter Summary ---
Demographics + + + | Address | [address] | | | [place] [address] | + + + | Home Phone | | + + + | Preferred Language | Unknown | + + + | Marital Status | | + + + | Druze Affiliation | Unknown | + + + | Race | Unknown | + + + | Ethnic Group | Unknown | + + + Author + + + | Author | [facility] | | | and [place] | + + + | Organization | [facility] | | | and [...] [place] | | | | | [address] | | + + + + + Care Team Providers + +------+ + | Care Jackscrew Worker Name | Role | Phone | + [...] | | | [address] [place] | [place] [address] | | | | | [place] [address] | | | | | | [phone] | | | +--------+ + + + [...]
--- OUTSIDE RECORDS SUMMARY | ~2020-03-19 | XMS | Encounter Summary ---
Demographics + + + | Address | [address] | | | [place] [address] | + + + | Home Phone | | + + + | Preferred Language | Unknown | + + + | Marital Status | | + + + | Gnosticist Affiliation | Unknown | + + + | Race | Unknown | + + + | Ethnic Group | Unknown | + + + Author + + + | Author | [facility] | | | and [place] | + + + | Organization | [facility] | | [...] [place] | | | | | [address] | | + + + + + Care Team Providers + +------+ + | Care Remelt Operator Name | Role | Phone | + +------+ + | Javier Hyman MD | PCP | | + +------+ + Encounter Details +--------+ + + + + | Date | Type | Department | Care Team | Description | +--------+ + + + + | 10/10/ | Documentati | [facility] | Josh Byrne | | | 2012 | on | SLEEP DISORDER [address] | MD Alis [address] | | | | | [address] [place] | [address] [place] | | | | | [place] [address] | [place] [address] | | | | | [phone] | [phone] | | | | | | | [...] documented as of this encounter Progress Notes Josh Byrne Jr., MD - 10/10/2012 9:15 AM PSTThe patient called staff and elects to no t undergo CBT-I. We will remain available on standby should he change his mind.Electronicall y signed by Josh Byrne Jr., MD at 10/10/2012 9:16 AM PSTdocumented in this encounter Plan of Treatment Not on filedocumented as of this encounter Visit Diagnoses Not on filedocumented in this encounter"
--- OUTSIDE RECORDS SUMMARY | ~2020-03-19 | XMS | Encounter Summary ---
Demographics + + + | Address | [address] | | | [place] [address] | + + + | Home Phone | | + + + | Preferred Language | Unknown | + + + | Marital Status | | + + + | Zoroastrian Affiliation | Unknown | + + + | Race | Unknown | + + + | Ethnic Group | Unknown | + + + Author + + + | Author | [facility] | | | and [place] | + + + | Organization | [facility] | | [...] [place] | | | | | [address] | | + + + + + Care Team Providers + +------+ + | Care Weld Engineer Name | Role | Phone | + +------+ + | Javier Hyman MD | PCP | | + +------+ + Encounter Details +--------+ + + + + | Date | Type | Department | Care Team | Description | +--------+ + + + + | 09/17/ | Abstract | [facility] | Provider, | | | 2019 | | PHYSIATRY [address] | [address] | | | | | [address] | [address] | | | | | [place] | [place] [address] | | | | | [address] | | | | | | [phone] | | | +--------+ + + + + Social History + + + +--------+ + | Tobacco Use | Types | Packs/Day | Years | Date | | | | | Used | | + + + +--------+ + | Former Smoker | Cigarettes | 1 | 11 | 2003 - 2014 | + + + +--------+ + + +------+---+---+ | Smokeless Tobacco: | Chew | | | | Current User | | | | + +------+---+---+ + + +---------+ + | Alcohol Use [...]
--- OUTSIDE RECORDS SUMMARY | ~2020-03-19 | XMS | Encounter Summary ---
Demographics + + + | Address | [address] | | | [place] [address] | + + + | Home Phone | | + + + | Preferred Language | Unknown | + + + | Marital Status | | + + + | Baptism Affiliation | Unknown | + + + [...] [place] | | | | | [address] | | + + + + + Care Team Providers + +------+ + | Care Package Dyeing Machine Operator Name | Role | Phone | [...] | [address] | [address] [place] [place] | | | | | [place], [place] | [address] | | | | | [address] | | | | | | [phone] | | | +--------+ + + + [...] 0.43 m/s MV | | | Dec Bonneville: 4.81 m/s2 MV DecT: 157.01 ms MV E Brice: 0.75 m/s | | | MV E/A Ratio: 1.71 MV PHT: 45.53 ms MVA By PHT: 4.83 cm2 | | | Septal e': 0.09 m/s Septal E/e': 7.65 Lateral e': 0.16 m/s | | | Lateral E/e': 4.64 RAP: 5 mmHg RV s': 0.13 m/s | | | Career And Transition Teacher: KEERTHI Authenticated by: JENNIFER GAMEZ MD LF [...] cmLVIDd: 5.10 cmLVPWd: 0.92 cmLVOT Area: 4.05 cc3TAWN Diam: | | 2.27 cm%FS: 31.21 %EF(Teich): [...] (A-L): 28.09 ml/m2LAAs A2C: | | 16.00 [id number] A-L A2C: 48.91 mlLALs A2C: 4.44 cmLAAs A4C: 18.32 [id number] A-L A4C: | | 64.33 mlLALs A4C: 4.43 cmRAAs: 17.62 [id number] A-L: 59.15 mlRAESV MOD: 51.93 | | mlRALs: 4.45 cmTAPSE: 2.55 cmAV maxP.52 mmHgAV meanP.79 mmHgAV Vmax: | | 1.17 m/Ender Vmean: 0.78 m/Ender VTI: 24.09 cmAVA Vmax: 3.55 cm2AVA (VTI): 3.31 | | pu3VIJN (Vmax): 0.00 cm2/m2AVAI (VTI): 0.00 cm2/m2LVOT maxP.25 mmHgLVOT | | meanP.26 mmHgLVSI Dopp: 39.92 ml/m2LVSV Dopp: 79.84 mlLVOT Vmax: 1.03 | | m/sLVOT Vmean: 0.70 m/sLVOT VTI: 19.70 cmMV A Brice: 0.43 m/sMV Dec Bonneville: 4.81 | | m/s2MV DecT: 157.01 msMV E Brice: 0.75 m/sMV E/A Ratio: 1.71MV PHT: 45.53 msMVA By | | PHT: 4.83 fm1Wsapxd e': 0.09 m/sSeptal E/e': 7.65Lateral e': 0.16 m/sLateral | | E/e': 4.64RAP: 5 mmHgRV s': 0.13 m/s Career And Transition Teacher: DBSAuthenticated by: JENNIFER | | FRANCO GAY [...] A Brice: 0.43 m/s | |MV Dec Bonne[place]: 4.81 m/s2 | |MV DecT: 157.01 ms | |MV E Brice: 0.75 m/s | |MV E/A Ratio: 1.71 | |MV PHT: 45.53 ms | |MVA By PHT: 4.83 cm2 | |Septal e': 0.09 m/s | |Septal E/e': 7.65 | |Lateral e': 0.16 m/s | |Lateral E/e': 4.64 | |RAP: 5 mmHg | |RV s': 0.13 m/s | | | |Career And Transition Teacher: DBS | |Authenticated by: JENNIFER GAMEZ MD | |Report Date/Time: 02-09-2019 16:38:15 | | | |IMPRESSION: | |1. Essentially normal study. | + + documented in this encounter Visit Diagnoses Not on filedocumented in this encounter"
--- OUTSIDE RECORDS SUMMARY | ~2020-03-19 | XMS | Encounter Summary ---
Demographics + + + | Address | [address] | | | [place] [address] | + + + | Home Phone | | + + + | Preferred Language | Unknown | + + + | Marital Status | | + + + | Faith Affiliation | Unknown | + + + [...] [place] | | | | | [address] | | + + + + + Care Team Providers + +------+ + | Care Reel Film Inspector Name | Role | Phone | + [...] [address] | | | | | [place], [place] | [place], | | | | | [address] | [place] [address] | | | | | [phone] | [phone] | | | | | | | [...] Filed: 11/16/162024 Encounter Date: 11/09/2016 Status: Signed Distillery Worker General: Chance Saleh MD (Physician) Quick Note: Could [...] he would like these tests done at [facility] in [place]. I ordered the tests we need electronically, could you please print these off and fax to [facility]? Thanks! documented in this encounter Plan [...]
--- OUTSIDE RECORDS SUMMARY | ~2020-03-19 | XMS | Encounter Summary ---
Demographics + + + | Address | [address] | | | [place] [address] | + + + | Home Phone | | + + + | Preferred Language | Unknown | + + + | Marital Status | | + + + | Oriental Orthodox Affiliation | Unknown | + + + | Race | Unknown | + + + | Ethnic Group | Unknown | + + + Author + + + | Author | [facility] | | | and [place] | + + + | Organization | [facility] | | | [...] [place] | | | | | [address] | | + + + + + Care Team Providers + +------+ + | Care Insurance Account Assistant Name | Role | Phone | + +------+ + | Christina Alan | PCP | | + +------+ + Encounter Details +--------+ + + + + | Date | Type | Department | Care Team | Description | +--------+ + + + + | 03/05/ | Abstract | [facility] [place] | Lisa García MD | | | 2019 | | NEUROSURGERY [address] | [address] [place] | | | | | [address] [facility] [address] | [place] [address] | | | | | [place] | [phone] | | | | | [address] | | | | | | [phone] | | | +--------+ + + + + Social History + + + +--------+ + | Tobacco Use | Types | Packs/Day | Years | Date | | | | | Used | | + + + +--------+ + | Former Smoker | Cigarettes | 1 | 11 | 2003 | + + + +--------+ + + [...]
--- OUTSIDE RECORDS SUMMARY | ~2020-03-19 | XMS | Encounter Summary ---
Demographics + + + | Address | [address] | | | [place] [address] | + + + | Home Phone | | + + + | Preferred Language | Unknown | + + + | Marital Status | | + + + | Judaism Affiliation | Unknown | + + + | Race | Unknown | + + + | Ethnic Group | Unknown | + + + Author + + + | Author | [facility] | | | and [place] | + + + | Organization | [facility] | | [...] [place] | | | | | [address] | | + + + + + Care Team Providers + +------+ + | Care Torpedo Man Name | Role | Phone | + +------+ + | Javier Hyman MD | PCP | | + +------+ + Encounter Details +--------+ + + + + | Date | Type | Department | Care Team | Description | +--------+ + + + + | 09/13/ | Hospital | [facility] | Conversion | Pain | | 2014 | Encounter | CONVERSION [address] | Transaction, | | | | | [address] | Provider Unknown | | | | | [place], [place] | [phone] | | | | | [address] | | | | | | [phone] | | | +--------+ + + + [...]
--- OUTSIDE RECORDS SUMMARY | ~2020-03-19 | XMS | Encounter Summary ---
Demographics + + + | Address | [address] | | | [place] [address] | + + + | Home Phone | | + + + | Preferred Language | Unknown | + + + | Marital Status | | + + + | Gnosticist Affiliation | Unknown | + + + | Race | Unknown | + + + | Ethnic Group | Unknown | + + + Author + + + | Author | [facility] | | | and [place] | + + + | Organization | [facility] | | | and [...] [place] | | | | | [address] | | + + + + + Care Team Providers + +------+ + | Care Staff Climate Scientist Name | Role | Phone | + +------+ + | Javier Hyman MD | PCP | | + +------+ + Encounter Details +--------+ + + + + | Date | Type | Department | Care Team | Description | +--------+ + + + + | 09/13/ | Hospital | [facility] | Conversion | Pain | | 2014 | Encounter | CONVERSION [address] | Transaction, | | | | | [address] | Provider Unknown | | | | | [place], [place] | [phone] | | | | | [address] | | | | | | [phone] | | | +--------+ + + + [...]
--- OUTSIDE RECORDS SUMMARY | ~2020-03-19 | XMS | Encounter Summary ---
Demographics + + + | Address | [address] | | | [place] [address] | + + + | Home Phone | | + + + | Preferred Language | Unknown | + + + | Marital Status | | + + + | Anabaptist Affiliation | Unknown | + + + [...] [place] | | | | | [address] | | + + + + + Care Team Providers + +------+ + | Care Food Mixer Assembler Name | Role | Phone | + [...] | | | [address] [place] | [place] [address] | | | | | [place] [address] | | | | | | [phone] | | | +--------+ + + + [...] + + + | MRI LUMBAR SPINE W | Routin | 08/23/2018 | | Results for this | | WO CONTRAST | e | 12:05 AM | | procedure are in the | | | | PST | | results section. | + +--------+ + + + documented in this encounter Results MRI Lumbar Spine w wo Contrast (08/23/2018 12:05 AM PST) + + | Specimen [...]
--- OUTSIDE RECORDS SUMMARY | ~2020-03-19 | XMS | Encounter Summary ---
Demographics + + + | Address | [address] | | | [place] [address] | + + + | Home Phone | | + + + | Preferred Language | Unknown | + + + | Marital Status | | + + + | Judaism Affiliation | Unknown | + + + | Race | Unknown | + + + | Ethnic Group | Unknown | + + + Author + + + | Author | [facility] | | | and [place] | + + + | Organization | [facility] | | | and [...] [place] | | | | | [address] | | + + + + + Care Team Providers + +------+ + | Care Gas Substation Operator Name | Role | Phone | + +------+ + | Christina Alan | PCP | | + +------+ + Encounter Details +--------+ + + + + | Date | Type | Department | Care Team | Description | +--------+ + + + + | 02/14/ | Hospital | [facility] | Christina Alan, AIRPORT LOCATION MANAGER | Canceled (OTHER) | | 2019 | Encounter | [facility] | [address] | | | | | MEDICINE [address] | [place], [place] | | | | | [place], | [address] | | | | | [place] [address] | | | | | | [phone] | | | +--------+ + + + [...]
--- OUTSIDE RECORDS SUMMARY | ~2020-03-19 | XMS | Encounter Summary ---
Demographics + + + | Address | [address] | | | [place] [address] | + + + | Home Phone | | + + + | Preferred Language | Unknown | + + + | Marital Status | | + + + | Religion Affiliation | Unknown | + + + | Race | Unknown | + + + | Ethnic Group | Unknown | + + + Author + + + | Author | [facility] | | | and [place] | + + + | Organization | [facility] | | | [...] [place] | | | | | [address] | | + + + + + Care Team Providers + +------+ + | Care Inventory Technician Name | Role | Phone | [...] | | | [address] [place] | [place] [address] | | | | | [place] [address] | | | | | | [phone] | | | +--------+ + + + [...]
--- OUTSIDE RECORDS SUMMARY | ~2020-03-19 | XMS | Encounter Summary ---
Demographics + + + | Address | [address] | | | [place] [address] | + + + | Home Phone | | + + + | Preferred Language | Unknown | + + + | Marital Status | | + + + | Oriental Orthodox Affiliation | Unknown | + + + | Race | Unknown | + + + | Ethnic Group | Unknown | + + + Author + + + | Author | [facility] | | | and [place] | + + + | Organization | [facility] | | | and [...] [place] | | | | | [address] | | + + + + + Care Team Providers + +------+ + | Care Mold Capper Name | Role | Phone | + +------+ + | Javier Hyman MD | PCP | | + +------+ + Encounter Details +--------+ + + + + | Date | Type | Department | Care Team | Description | +--------+ + + + + | 09/13/ | Hospital | [facility] | Conversion | Pain | | 2014 | Encounter | CONVERSION [address] | Transaction, | | | | | [address] | Provider Unknown | | | | | [place], [place] | [phone] | | | | | [address] | | | | | | [phone] | | | +--------+ + + + [...] | | WO CONTRAST | e | 5:45 AM | | procedure are in the | | | | PST | | results section. | + +--------+ + + + documented in this encounter Results MRI Cervical Spine wo Contrast (07/31/2012 5:45 AM PST) [...] Note | + + | Brenden Kay Rhiannon - 03/30/2019 11:20 AM PDT This is a non-reportable procedure | | without a radiologist report and isused for image storage only | + + documented in this encounter Visit Diagnoses + + | Diagnosis | + + | Pain Generalized pain | + + documented in this encounter"
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
--- OUTSIDE RECORDS SUMMARY | ~2020-03-19 | XMS | Encounter Summary ---
Demographics + + + | Address | [address] | | | [place] [address] | + + + | Home Phone | | + + + | Preferred Language | Unknown | + + + | Marital Status | | + + + | Advent Affiliation | Unknown | + + + [...] | + + + + + | Billieall Clayton | ECON | [address] | | | | | [place] | | | | | [address] | | + + + + + Care Team Providers + +------+ + | Care Seamer Panty Hose Name | Role | Phone | + +------+ + | Javier Hyman MD | PCP | | + +------+ + Reason for Visit +---------+ + | Reason | Comments | +---------+ + | Snoring | | +---------+ + Encounter Details +--------+---------+ + + + | Date | Type | Department | Care Team | Description | +--------+---------+ + + + | 09/28/ | Office | [facility] | Josh Byrne | Organic insomnia, | | 2012 | Visit | SLEEP DISORDER [address] | MD Al[address] | unspecified (Primary | | | | [address] | [address] [place] | Dx); PTSD | | | | [place] [address] | [place] [address] | (post-traumatic | | | | [phone] | [phone] | stress disorder) | | | | | | | +--------+---------+ + + + Social History [...] + + + | Blood Pressure | 130/80 | 09/28/2012 1:17 PM | | | | | PST | | + + + + + | Pulse | 84 | 09/28/2012 1:17 PM | | | | | PST | | + + + + + | Temperature | - | - | | + + + + + | Respiratory Rate | 16 | 09/28/2012 1:17 PM | | | | | PST | | + + + + + | Oxygen Saturation | - | - | | + + + + + | Inhaled Oxygen | - | - | | | Concentration | | | | + + + + + | Weight | 77.5 kg (170 lb 12.8 | 09/28/2012 1:17 PM | | | | oz) | PST | | + + + + + | Height | 193 cm (6' 4") | 09/28/2012 1:17 PM | | | | | PST | | + + + + + | Body Mass Index | 20.79 | 09/28/2012 1:17 PM | | | | | PST | | + + + + + documented in this encounter Patient Instructions Patient Instructions Tashia Wallace - 09/28/2012 1:17 PM PST September 28, 2012 Davy Clayton [address] [place] [address] Dear Davy: Thank you for enrolling in [facility]. Please follow the instructions below to view your ididwork online medical record. [facility] allows you to send secure messages to your doctor, view you r test results, renew your prescriptions, schedule appointments, and more. How Do I Sign Up? 1. In your Internet browser, go to [email or web address] 2. Click on the Sign Up Now link in the Sign In box.This will take you to the New Member Si gn Up page. 3. Enter your [facility] access code exactly as it appears below. You will not need to use thi s code after you sign up. If you do not sign up before the expiration date, you must request a new code through your [facility]. [facility] Access Code: [email or web address] Expires: 11/27/2012 13:17 4. Fill in the last four digits of your Social Security Number (xxxx) and Date of (mm /dd/yyyy) when asked and click Submit. You will now be asked to create a [facility] ID. 5. Create a Snapwizt ID. This will be your [facility] login ID. Your login ID cannot be changed , so think of one that is secure and easy to remember. 6. Create a [facility] password. You can change your password at any time. 7. Enter your Password Reset Question and Answer. This can be used at a later time if you f orget your password. 8. Enter your e-mail address. You will receive e-mail notification when new information is available in [facility]. 9. Click Sign Up. You may now view your medical record. Additional Information If you have questions, you can email [email or web address] or call [phone] to talk to our MyChart care team. Please remember, MyChart should NOT be used fo r urgent needs. For all medical emergencies, call 911. Sincerely, Josh Byrne MD documented in this encounter Progress Notes Josh Byrne Jr., MD - 09/28/2012 1:31 PM PSTFormatting of this note might be differen t from the original. [facility] [place] [address] Ref: Javier Hyman,* CC: Chief Complaint Patient presents with Snoring History of the Present Illness:This 31 year old male is referred by Dr. Damir Hyman for sle ep medicine evaluation and consideration of Cognitive-Behavioral Therapy of Insomnia. The pa christina also has a history of Post Traumatic Stress Disorder associated with two deployments [place]. Records from Dr. Hyman's office are reviewed including notes from Dr. Chandana Shi (PhD Clinical psyhoclogist) who lists diagnosis: [employer] 1: Post-Traumatic Stress, rule out episodic alcohol abuse; [employer] II: Deferred; [employer] III: Gastrointestinal Distress and Back Pain; [employer] IV: Psychosocial stressors mild to moderate; [employer] V: GAF = 50. 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 He and his girlfriend start tucking the kids (3-5) at 8pm and they are in bed by 8:30pm. Th ey talk for a bit and try to fall asleep. He estimates a sleep latency 10-15 minutes but he doesn't stay asleep. But he estimates that about 30% of the time he might take until 1am or later to fall sleep. But he never stays asleep more 3-4 hours. He denies night sweats. He de nies nocturnal heartburn. He denies dry mouth or sinus/nasal congestion. He denies awakening with headaches. He denies restlessness in his legs at night and his girlfriend says that his legs don't kic k at night. He snores but not often according to his girlfriend and usually it's very, very quiet. She doesn't notice that he has apneas or gasps for air. He feels very fatigued and very tired in the daytime. He doesn't nap in the daytime. He bonilla sn't fall asleep driving or watching TV. He generally doesn't take naps. He seems sleepy to his girlfriend but he doesn't ever inadvertently fall asleep during the day. If he awakens in the middle of the night he lies in bed and closes his eyes and he falls ba ck to sleep about 60% of the time. The rest of the time he either stays awake in bed awake o r at best drifting in and out of sleep until his alarm goes off at 5:15am. He often will hit the snooze button a bunch of time. He thinks that he is more of a night owl and has been mo st of his life. If he is up all night he usually sleeps rather well the next night if he takes melatonin an d zolpidem. If he doesn't take medications, he will lie awake with eyes open not sleeping - this started after his first deployment. Prior to bedtime was 9-10am and rise time was as late as noon. He did not awaken i n the middle of the night at that time and he viewed himself as a good sleeper. When he can't sleep he thinks of a variety of things (snowboarding, kids, home projects). Jennifer ziegler says that he doesn't think about the service at night. In his bedroom he sleeps; sex; get dressed. He doesn't sleep in other rooms of the house. He dreams never. He doesn't walk in his sleep. He doesn't have dream enactment during sleep . He denies nightmares or flashbacks. When he gets to bed he feels "relief." He denies getting anxious about not falling asleep. He consumes Red Bull about 36 ounces a day and 12 ounces of caffeinated soft drink in the a fternoon. Past Medical History: has a past medical history of PTSD (post-traumatic stress disorder) and Organic insomnia. has past surgical history that includes Appendectomy (2009). No Known Allergies Current Outpatient Prescriptions Medication Sig Dispense Refill cyclobenzaprine (FLEXERIL) 10 mg tablet Take 10 mg by mouth 3 times daily as needed. zolpidem (AMBIEN) 10 mg tablet Take 10 mg by mouth nightly as needed. Family Medical History: family history includes Diabetes in his father and Other (See Comme nt) in his father. indicated that his mother is alive. He indicated that his father is alive. He indicated reji t his brother is alive. He indicated that both of his sons are alive. 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 Eyes:Denies sudden loss of vision, diplopia, blurred vision. ENT: Denies loss of hearing, vertigo, nasal or sinus congestion, bleeding gums or poor de ntal repair. Card:Denies exertional substernal chest heaviness, leg pain. Denies palpitations, orthopn ea, ankle edema, presyncope. Resp: Denies cough, wheezing, asthma, hemoptysis GI: Denies nausea, vomiting, abdominal pain, diarrhea, constipation, hematochezia. : Denies dysuria, pyuria, hematuria, frequency, incontinence MS: Denies back pain, neck pain, arthralgias, arthritis, myalgias Neuro: Denies seizures, strokes, loss of consciousness, dysesthesias or paresthesias, syn cope, concussions. Psych: Denies: depression, anxiety, panic, past history physical or sexual abuse, severe traumatic experiences Endocrine: Denies heat or cold intolerance Heme: Denies easy bruising or prolonged bleeding. No history of transfusions Allergic/Immunologic: Denies seasonal allergies PE: BP 130/80 | Pulse 84 | Resp 16 | Ht 1.93 m (6' 4") | Wt 77.474 kg (170 lb 12.8 oz) | BM I 20.79 kg/m2 Gen: healthy, alert and not in acute distress HEENT:Head: Normocephalic, no lesions, without obvious abnormality. Eye: Normal external eye, conjunctiva, lids cornea, ESME. Nose: Normal external nose, mucus membranes and septum. Pharynx: Dental Hygiene adequate. Normal buccal mucosa. Tonsillar grade 0. Mallampati 2. Neck / Thyroid: Supple, no masses, nodes, nodules or enlargement. Pulm: lungs clear to auscultation Card: regular rate and rhythm, S1, S2 normal, no murmur, click, rub or gallop GI: Not examined : Not examined Rectal: Not Examined Ext: Not examined Skin:Not examined Neuro:Oriented x 3. Cranial 2-12 intact. Motor grossly normal. Gait and station normal. Psych:age appropriate and casually dressedoriented to time, place and person, pt is a good historian; no memory problems were noted. Has mildly anxious and slightly withdrawn affect. Heme: No cervical adenopathy Assessment: Organic Insomnia: I suspect that this patient has rather severe PTSD and that his insomnia is primarily secondary to PTSD. 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 The basics of sleep were discussed with the patient. In particular I've discussed the determinants of sle ep/wake. We've discussed biologic clock function which sets the underlying timing of optimal sleep wake times during the day. The "clock" provides an increasing alerting stimulus for a bout 16 hours, usually during daylight. The "clock" then deceases its alerting effects for a bout 8 hours, usually at night. The timing of the "clock" activity can only be changed by ab out 1-2 hours from day to day and thus if sleep-wake schedules vary by more than 2 hours fro m day to day, sleep/wake disturbances (clock dependent sleep fragmentation and clock depende nt daytime fatigue) can result. This is often seen in shift workers and is responsible for m any of the symptoms of jet lag (circadian rhythm disorders). I've also discussed the homeost atic drive to sleep - the longer one is awake, the more the slept debt builds. The alerting activities of the biologic clock drive wakefulness; during wakefulness the homeostatic sleep drive builds. The homeostatic drive to sleep then drives sleep as the biologic clock activi ty declines. There are also other alerting "centers" of the brain (such as interest, fear, a ctivity, and stimulant medications). I've also discussed the fact that humans sleep in cycles lasting about 90 minutes in adults (50 minutes in children) where we cycle through N1, N2, N3, and REM sleep. There is a brief awakening between each sleep cycle which is short enough that memory consolidation doesn't occur and most people are not aware of these awakenings. I've discussed the differences betw een the various stages of sleep. In particular I've discussed there fact that muscles relax in NREM sleep. In REM sleep (dream sleep) the brain is actually much more active than it is during wakefulness. To prevent one from "acting out" dreams which can result in injury, the brain paralyzes the body just before REM sleep starts. We've talked about conditioned insomnia and we've talked about the fact that during certain portions of sleep (Stage N3 sleep), a person really is at the mercy of his/her environment. If the environment genuinely isn't safe, high quality sleep is very difficult to obtain unl ess one is absolutely exhausted. I've discussed what is done in Cognitive-Behavioral Therapy of Insomnia: cognitive therapy, stimulus control, sleep restriction, relaxation, and meditation can all be a part of an ind ividualized program. Typically we meet once a week for an hour and a typical course is 4-8 v isits. A sleep diary is kept and is used extensively. In this patient's case I would recommend continuing on zolpidem which seems to help at leas t some. PTSD: I think this is his main issue though - note the very high score on the Chaudhry Depressi on Inventory (he has thought of suicide but would never commit it) and I think that this req uires a combination of talk therapy, possibly group therapy, and possibly medications. The [facility] in [place], I believe, does offer this therapy. 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 Plan: 1) I've offered him a trial of CBT-I. He will think about this and call us in a week with his decision. 2) I would continue him on zolpidem 10mg at night 3) I would strongly recommend formal therapy, possibly through the [facility] in [place], for PTSD 4) I question whether another deployment to a combat zone is cooper and will do any thing the patient decides should he decide to try to get disability. Today, 60 minutes was spent face to face with the patient; the majority of time was spent ruslan toribio. CC: Dr. Damir Hyman imon, Josh Deras Jr., MD - 09/28/2012 1:29 PM PSTFormatting of this note might be different from the origin al. 09/28/12 1300 Chaudhry Depression Inventory-II Depression Score 33 Insomnia Severity Index Insomnia Severity Index 22 Hackett Sleepiness Scale Sitting and reading 0 Watching TV 0 Sitting, inactive in a public place (e.g. a theatre or a meeting) 0 As a passenger in a car for an hour without a break 0 Lying down to rest in the afternoon when circumstances permit 1 Sitting and talking to someone 0 Sitting quietly after a lunch without alcohol 0 In a car, while stopped for a few minutes in traffic 0 Total score 1 SF-36v2 Score PF 42.3 RP 44.61 BP 29.15 GH 38.63 VT 23.99 SF 45.94 RE 51.99 MH 33.11 PCS 38.01 MCS 40.09 documented in t his encounter Miscellaneous Notes Miscellaneous - ONZACHARIAH DUONG - 09/28/2012 12:00 AM PST documented in this encounter Plan of Treatment Not on filedocumented as of this encounter Visit Diagnoses + + | Diagnosis | + + | Organic insomnia, unspecified - Primary | + + | PTSD (post-traumatic stress disorder) Posttraumatic stress disorder | + + documented in this encounter
--- OUTSIDE RECORDS SUMMARY | ~2020-03-19 | XMS | Encounter Summary ---
Demographics + + + | Address | [address] | | | [place] [address] | + + + | Home Phone | | + + + | Preferred Language | Unknown | + + + | Marital Status | | + + + | Jew Affiliation | Unknown | + + + | Race | Unknown | + + + | Ethnic Group | Unknown | + + + Author + + + | Author | [facility] | | | and [place] | + + + | Organization | [facility] | | | [...] [place] | | | | | [address] | | + + + + + Care Team Providers + +------+ + | Care Parts Technician Name | Role | Phone | [...] | | | [address] [place] | [place] [address] | | | | | [place] [address] | | | | | | [phone] | | | +--------+ + + + [...]
--- OUTSIDE RECORDS SUMMARY | ~2020-03-19 | XMS | Encounter Summary ---
Demographics + + + | Address | [address] | | | [place] [address] | + + + | Home Phone | | + + + | Preferred Language | Unknown | + + + | Marital Status | | + + + | Scientology Affiliation | Unknown | + + + | Race | Unknown | + + + | Ethnic Group | Unknown | + + + Author + + + | Author | [facility] | | | and [place] | + + + | Organization | [facility] | | | [...] [place] | | | | | [address] | | + + + + + Care Team Providers + +------+ + | Care Caddie Supervisor Name | Role | Phone | + +------+ + | Javier Hyman MD | PCP | | + +------+ + Encounter Details +--------+ + + + + | Date | Type | Department | Care Team | Description | +--------+ + + + + | 03/20/ | Orders Only | [facility] | Provider, | Precocious puberty; | | 2018 | | SYSTEM GENERIC OP | MD [address] | Other specified | | | | CONVERSION [address] | [address] | disorders of bone | | | | [address] [place], [place] | [place] [address] | density and | | | | [address] | | structure, | | | | [phone] | | unspecified site | +--------+ + [...]
--- OUTSIDE RECORDS SUMMARY | ~2020-03-19 | XMS | Encounter Summary ---
Demographics + + + | Address | [address] | | | [place] [address] | + + + | Home Phone [...] [place] | | | | | [address] | | + + + + + Care Team Providers + +------+ + | Care Director Of Curriculum And Instruction Name | Role | Phone | + [...] | | | [address] [place] | [place] [address] | | | | | [place] [address] | | | | | | [phone] | | | +--------+ + + + [...]
--- OUTSIDE RECORDS SUMMARY | ~2020-03-19 | XMS | Encounter Summary ---
Demographics + + + | Address | [address] | | | [place] [address] | + + + | Home Phone | | + + + | Preferred Language | Unknown | + + + | Marital Status | | + + + | Scientologist Affiliation | Unknown | + + + | Race | Unknown | + + + | Ethnic Group | Unknown | + + + Author + + + | Author | [facility] | | | and [place] | + + + | Organization | [facility] | | [...] [place] | | | | | [address] | | + + + + + Care Team Providers + +------+ + | Care Relationship Manager Name | Role | Phone | [...] | | | [address] | [place] [address] | | | | | [place] [address] | | | | | | [phone] | | | +--------+ + + + [...]
--- OUTSIDE RECORDS SUMMARY | ~2020-03-19 | XMS | Encounter Summary ---
Demographics + + + | Address | [address] | | | [place] [address] | + + + | Home Phone | | + + + | Preferred Language | Unknown | + + + | Marital Status | | + + + | Alevism Affiliation | Unknown | + + + | Race | Unknown | + + + | Ethnic Group | Unknown | + + + Author + + + | Author | [facility] | | | and [place] | + + + | Organization | [facility] | | | and [...] [place] | | | | | [address] | | + + + + + Care Team Providers + +------+ + | Care Cloth Printer Helper Name | Role | Phone | + [...] | | | [address] | [place] [address] | | | | | [place] [address] | | | | | | [phone] | | | +--------+ + + + [...]
--- OUTSIDE RECORDS SUMMARY | ~2020-03-19 | XMS | Encounter Summary ---
Demographics + + + | Address | [address] | | | [place] [address] | + + + | Home Phone | | + + + | Preferred Language | Unknown | + + + | Marital Status | | + + + | Yazidi Affiliation | Unknown | + + + | Race | Unknown | + + + | Ethnic Group | Unknown | + + + Author + + + | Author | [facility] | | | and [place] | + + + | Organization | [facility] | | | and [...] [place] | | | | | [address] | | + + + + + Care Team Providers + +------+ + | Care Warper Fixer Name | Role | Phone | + +------+ + | Javier Hyman MD | PCP | | + +------+ + Encounter Details +--------+ + + + + | Date | Type | Department | Care Team | Description | +--------+ + + + + | 09/13/ | Hospital | [facility] | Conversion | Pain | | 2014 | Encounter | [address]VERSION [address] | Transaction, | | | | | [address] | Provider Unknown | | | | | [place], [place] | [phone] | | | | | [address] | | | | | | [phone] | | | +--------+ + + + [...]
--- OUTSIDE RECORDS SUMMARY | ~2020-03-19 | XMS | Encounter Summary ---
Demographics + + + | Address | [address] | | | [place] [address] | + + + | Home Phone | | + + + | Preferred Language | Unknown | + + + | Marital Status | | + + + | Denominational Affiliation | Unknown | + + + | Race | Unknown | + + + | Ethnic Group | Unknown | + + + Author + + + | Author | [facility] | | | and [place] | + + + | Organization | [facility] | | [...] [place] | | | | | [address] | | + + + + + Care Team Providers + +------+ + | Care Business Intelligence Manager Name | Role | Phone | + +------+ + | Christina Alan | PCP | | + +------+ + Reason for Visit + +--------+ + | Reason | Onset | Comments | | | Date | | + +--------+ + | Follow-up | 12/03/ | returned call checkin on him, waiting to schedule | | | 2019 | another appt. Open to virtual visit; lives in [place]. | + +--------+ + Encounter Details +--------+ + + + + | Date | Type | Department | Care Team | Description | +--------+ + + + + | 12/03/ | Telephone | [facility] | Lisa García MD | Follow-up (returned | | 2019 | | NEUROSURGERY [address] | [address] | call checkin on him, | | | | [address] [facility] [address] | [place] [address] | waiting to schedule | | | | [place] | [phone] | another appt. Open | | | | [address] | | to virtual visit; | | | | [phone] | | lives in [place]. ) | +--------+ + + + + Social [...] Notes Telephone Encounter - Aurora Huang - 12/04/2019 11:44 AM PDTMoving note to referral . Patient returned a call from Zelda yesterday, checking on how he is doing. Zelda was no t available when he called in. He said he is doing about the same, just plugging along. Hadn 't scheduled another visit due to Covid19. He is ok waiting to be seen after the virus threa t is over, probably in the summer. He is open to a virtual visit, if that option is availabl e for him before then, as he lives in [place]. He said he is in no espinosa. He said said his iss ues are just more of a nuisance. documented in this encounter Plan of Treatment Not on filedocumented as of this encounter Visit Diagnoses Not on filedocumented in this encounter"
--- OUTSIDE RECORDS SUMMARY | ~2020-03-19 | XMS | Clinical Summary ---
Demographics + + + | Address | [address] | | | [place] [address] | + + + | Home Phone | | + + + | Preferred Language | Unknown | + + + | Marital Status | | + + + | Pentecostalism Affiliation | Unknown | + + + | Race | Unknown | + + + | Ethnic Group | Unknown | + + + Author + + + | Author | [facility] | | | and [place] | + + + | Organization | [facility] | | | [...] [place] | | | | | [address] | | + + + + + Care Team Providers + +------+ + | Care Equipment Manager Name | Role | Phone | [...] | 01/28/ | Telephone | Neurosurgery | Lias García MD | Coordination Of Care | [...] + | Multiple sclerosis | Father | Juna | | | | | Clayton | [...] +--------+-------+---------+--------+ | [facility] | [facility] | [id number] | | | | Indemn | | | NS | | [id number]-Pr | | | ity | | | ADMIN | | esent | | | | | | [place] | | | | | | | | [place] | | | | | | + +--------+ +--------+-------+---------+--------+ | [facility] | [place] | [phone] | 08/20/19 | | | Indemn | [...] avery | | | 9 (Home) | [address] | + +--------+ +--------+ + + Advance Directives + + + + + | Type | Date Recorded | Patient | Explanation | | | | Anodic Operator | | + + + + + | Power of | | | | | Truck Driver'S Offsider | | | | + + + + + | Advance | 09/19/2019 10:45 | | | | Directive | AM | | | + + + + +
--- OUTSIDE RECORDS SUMMARY | ~2020-03-19 | XMS | Encounter Summary ---
Demographics + + + | Address | [address] | | | [place] [address] | + + + | Home Phone | | + + + | Preferred Language | Unknown | + + + | Marital Status | | + + + | Evangelical Affiliation | Unknown | + + + [...] [place] | | | | | [address] | | + + + + + Care Team Providers + +------+ + | Care Channel Process Supervisor Name | Role | Phone | + +------+ + | Javier Hyman MD | PCP | | + +------+ + Encounter Details +--------+ + + + + | Date | Type | Department | Care Team | Description | +--------+ + + + + | 12/21/ | Hospital | [facility] | Conversion | | | 2017 | Encounter | [facility] | Transaction, | | | | | NUCLEAR MEDICINE | Provider Unknown | | | | | [address] | | | | | | [place], [place] | (Fax) | | | | | [address] | | | | | | [phone] | | | +--------+ + + + [...]
--- OUTSIDE RECORDS SUMMARY | ~2020-03-19 | XMS | Encounter Summary ---
Demographics + + + | Address | [address] | | | [place] [address] | + + + | Home Phone | | + + + | Preferred Language | Unknown | + + + | Marital Status | | + + + | Hindu Affiliation | Unknown | + + + | Race | Unknown | + + + | Ethnic Group | Unknown | + + + Author + + + | Author | [facility] | | | and [place] | + + + | Organization | [facility] | | | [...] [place] | | | | | [address] | | + + + + + Care Team Providers + +------+ + | Care Electric Meter Inspector Name | Role | Phone | + +------+ + | Christina Alan | PCP | | + +------+ + Reason for Visit + + + | Reason | Comments | + + + | New Patient | Thoracic pain | + + + Evaluate & Treat (Routine) + +--------+ + + + + | Status | Reason | Specialty | Diagnoses / | Referred By | Referred To | | | | | Procedures | Contact | Contact | + +--------+ + + + + | Authorized | | Neurosurgery | Diagnoses | [place], | [facility] | | | | | Pain in | Christina, SOFTWARE SUPPORT SPECIALIST | Neurosurgery | | | | | thoracic | [address] | | | | | spine | [address] | | | | | | [address] [place] | [place], | | | | | | [place], [place] | [place] [address] | | | | | | [address] | Phone: | | | | | | Phone: | [phone] | | | | | | [phone] | Fax: | | | | | | Fax: | [phone] | | | | | | [phone] | | + +--------+ + + + + Encounter Details +--------+---------+ + + + | Date | Type | Department | Care Team | Description | +--------+---------+ + + + | 10/23/ | Office | [facility] | Lisa García MD | Chest wall pain | | 2020 | Visit | NEUROSURGERY [address] | [address] | (Primary Dx) | | | | [address] | [place] [address] | | | | | [place], [place] | [phone] | | | | | [address] | | | | | | [phone] | | | +--------+---------+ + + + [...] + + + | Respiratory Rate | - | - | | + [...] in this encounter Patient Instructions Patient Instructions Marissa Pretty Cert MA - 10/24/2019 10:10 AM PDTIt was a pleasure se eing you today! In consideration of various patient sensitivities, please do not wear perfumes, cologne or fragranced lotions to your appointments here at [facility]. Thank you! Please get the injection ordered by Nathalie Gilbert PA-C. If the injection doesn't work the n contact our office and we will have you complete the chest x-ray. documented in this encounter Progress Notes Lisa García MD - 10/24/2019 10:10 AM PDTFormatting of this note might be different from t he original. Neurosurgical Consultation [place], [place]. Patient: Davy Clayton : 1980: Age: 38 y.o. MedRec: [id number] Physician author: Lisa García MD Today: 10/24/2019 Consult requested by: Christina Alan N.P. Reason for consult: Left upper intrathoracic pain. HISTORY OF PRESENT ILLNESS: Mr. Clayton is a 38 y.o. man who comes to this appointment by himself and describes an appro ximately one year, gradually worsening history of a persistently aching (not throbbing) pain within the interior of his Left upper thorax (not in the chest wall) that is punctuated by a sharp pain in the same location whenever he takes a deep breath. There have been no othe r associated symptoms (e.g., tenderness, shoulder joint problem, neck pain, arm pain, sympto ms with neck movement, tingling, numbness, weakness, findings on an extensive cardiology wor kup, palpitations, dysphagia) and he feels otherwise well. PAST MEDICAL and SURGICAL HISTORY: Past Medical History: Diagnosis Date Abdominal [...] pain Tinnitus Tobacco use Vitamin D deficiency Past Surgical History: Procedure Laterality Date APPENDECTOMY 2010 CHOLECYSTECTOMY 2017 FOREIGN BODY REMOVAL Left 2009 Hand HAND SURGERY Right 2015 FAMILY HISTORY: The family history includes Diabetes, NIDDM in his father; Multiple sclerosis in his father ; No known problems in his brother, maternal grandfather, maternal grandmother, paternal gra ndfather, paternal grandmother, sister, son, and son; Osteoporosis in his mother; Sleep apne a in his father. Otherwise no known history of any inherited family illness. SOCIAL HISTORY: The patient reports that he [...] reports prev ious drug use. Drug: Marijuana. HOME MEDICATIONS: PT REPORTED TAKING NOT TAKING Medication Sig Last Dose Dispense Doc. Provider cetirizine (ZYRTEC) 10 mg tablet Take 10 mg by mouth Daily. Historical Provider, cholecalciferol (VITAMIN D3) 50 mcg (2,000 units) capsule Take 2,000 Units by mouth Daily. Historical Provider, Fish Oil 1000 MG delayed release capsule Take 1,000 mg by mouth Daily. 09/18/2019 Historica l MD Cameron Multiple Vitamins-Minerals (MULTIVITAMIN ADULT) TABS Take 1 tablet by mouth Daily. Histo rical ProviderMD sodium chloride (OCEAN) 0.65 % nasal spray 2 sprays by Nasal route 3 times daily. Histor ical ProviderMD ALLERGIES: Allergies Allergen Reactions Citalopram Headache Bupropion Headache Fluoxetine Headache Sertraline Headache CURRENT MEDICATIONS: Current Outpatient Medications Medication Sig Dispense Refill cetirizine (ZYRTEC) 10 mg tablet Take 10 mg by mouth Daily. cholecalciferol (VITAMIN D3) 50 mcg (2,000 units) capsule Take 2,000 Units by mouth Francine ly. Fish Oil 1000 MG delayed release capsule Take 1,000 mg by mouth Daily. Multiple Vitamins-Minerals (MULTIVITAMIN ADULT) TABS Take 1 tablet by mouth Daily. sodium chloride (OCEAN) 0.65 % nasal spray 2 sprays by Nasal route 3 times daily. No current facility-administered medications for this visit. REVIEW OF SYSTEMS: A complete review of systems was obtained with pertinent positives as per the above HPI, an d otherwise negative. PHYSICAL EXAMINATION: Constitutional: His height is 6'2" and his weight is 188 pounds. His respirations are regul ar with a percutaneous oxygen saturation of 97%. His pulse is 78 and regular with a blood pr essure of 110/68. Head and neck: His neck is supple with normal range of asymptomatic motion. The Spurling s ign is absent bilaterally. The neck, base of neck and supraclavicular area are without palp able masses or bruits. The Adson's test is negative bilaterally. Cardiovascular: On auscultation, the heart has a regular rate and rhythm without murmur. T he carotid pulses are normal in amplitude and without bruit. The limbs are well perfused wi thout edema or tenderness. The lungs are clear to auscultation Abdomen: There are no palpable masses or tenderness Musculoskeletal: The voluntary motor strength is 5/5 bilaterally at the deltoids, biceps, t riceps, wrist flexion extension, metacarpophalangeal flexion extension and intrinsic arguello d muscles. In the legs, the strength is 5/5 in the bilateral extensor hallucis longus, flex or hallucis longus, ankle plantar flexion ankle dorsiflexion, quadriceps and thigh musculatu re. The resting muscle tone is normal throughout all 4 limbs and there is no atrophy, fasci culations, tenderness, limitation passive range of joint movement, cutaneous abnormalities o r edema. The dorsal spinal column is nontender. Gait: His gait is normal and he is able to perform tandem gait as well as walk on his tipto es and heels. The Romberg's test is negative. NEUROLOGICAL EXAMINATION Mental status: He is alert and well oriented with intact memory for recent and remote milo nts. The attention span and concentration are normal and he is fluent and conversant with a nd with excellent comprehension and intact fund of knowledge. The examination was well-tole rated with no new discomfort. Cranial nerves: II: The visual perdomo are full to confrontation. III, IV, : The pupils a re equal, symmetric and reactive to light. Extraocular movements are full without nystagmus . V: The facial sensation is normal to pinprick testing. The jaw opening is midline and no rmal in strength. VII: The facial movements are symmetric and full. VIII: Auditory acuity is intact to finger rub. IX, X: The uvular and palatal movements are normal. XI: The land ocleidomastoid strength is symmetric and normal. XII: The tongue moves symmetrically and ap pears normal. Sensory: The pinprick sensation is intact through the face, neck, shoulders, torso, arms an d legs. Reflexes: The deep tendon reflexes are symmetric and normal bilaterally in the upper and lo wer limbs (approximately 1 to 1+/4 throughout). The plantar reflexes are downgoing bilateral ly with no ankle clonus. Coordination: There is no dysmetria noted on [id number]-jr-wkcw testing and no gait ataxia. Th e fine finger movements are intact bilaterally and he is able to jog in place with reasonabl e agility. There is no pronator drift and no resting or intention tremor. DIAGNOSTIC STUDIES: I reviewed the thoracic spine MRI study done on September 19, 2019 that was normal. ASSESSMENT: Problem #1. Left upper intrathoracic pain. With the most prominent feature of this pain being that it can be reliably exacerbated by d eep breathing. There are no clinical findings to implicate other nearby structures (spinal c olumn, heart, esophagus, shoulder, etc.). I reviewed the above MRI study in detail with the attending radiologist (focusing his attention to axial images of the the Left lung and pleur a) and he could not find any abnormalities. As next steps, I recommended: A. He has been prescribed a course of oral steroids by Ms. Nathalie Batista and will proceed with this regimen to determine if the pain is steroid responsive and hence inflammatory in nature. B. If the pain persists despite the steroid course, he will proceed with a chest X-ray. C. If the chest X-ray is non-diagnostic, he will proceed with a chest CT. I asked Mr. Clayton to keep me informed regarding his ongoing condition and to call if his s ymptoms change of if I might otherwise be of further assistance. I discussed the above and related issues with Mr. Clayton and answered his questions to his satisfaction over the course of a total time of 60 minutes for our meeting, over 50% of whic h was spent in face to face discussion regarding counseling and coordination of care. Electronically signed by: Lisa García MD 10/24/2019 8:37 AM [facility] Portions of this chart may have been created with Aureliant voice recognition software. Occasi onal wrong-word or sound-alike substitutions may have occurred due to the inherent vasquez itations of voice recognition software. Please read the chart carefully and recognize, using context, where these substitutions have occurred documented in this encou nter Plan of Treatment Not on filedocumented as of this encounter Visit Diagnoses + + | Diagnosis | + + | Chest wall pain - Primary Painful respiration | + + documented in this encounter
--- OUTSIDE RECORDS SUMMARY | ~2020-03-19 | XMS | Encounter Summary ---
Demographics + + + | Address | [address] | | | [place] [address] | + + + | Home Phone | | + + + | Preferred Language | Unknown | + + + | Marital Status | | + + + | Denominational Affiliation | Unknown | + + + | Race | Unknown | + + + | Ethnic Group | Unknown | + + + Author + + + | Author | [facility] | | | and [place] | + + + | Organization | [facility] | | | [...] [place] | | | | | [address] | | + + + + + Care Team Providers + +------+ + | Care Conveyancer Name | Role | Phone | + +------+ + | Javier Hyman MD | PCP | | + +------+ + Encounter Details +--------+ + + + + | Date | Type | Department | Care Team | Description | +--------+ + + + + | 09/13/ | Hospital | [facility] | Conversion | Pain | | 2014 | Encounter | CONVERSION [address] | Transaction, | | | | | [address] | Provider Unknown | | | | | [place], [place] | [phone] | | | | | [address] | | | | | | [phone] | | | +--------+ + + + [...] + + + | XR THORACIC SPINE 3 | Routin | 02/15/2012 | | Results for this | | VW | e | 5:44 AM | | procedure are in the | | | | PDT | | results section. | + +--------+ + + + documented in this encounter Results XR Thoracic Spine 3 Vw (02/15/2012 5:44 AM PDT) + + | Specimen | [...]
--- OUTSIDE RECORDS SUMMARY | ~2020-03-19 | XMS | Encounter Summary ---
Demographics + + + | Address | [address] | | | [place] [address] | + + + | Home Phone | | + + + | Preferred Language | Unknown | + + + | Marital Status | | + + + | Jehovah'S Witness Affiliation | Unknown | + + + [...] [place] | | | | | [address] | | + + + + + Care Team Providers + +------+ + | Care Cell Coverer Name | Role | Phone | + [...] | | | [address] [place] | [place] [address] | | | | | [place] [address] | | | | | | [phone] | | | +--------+ + + + [...] this | | CONTRAST | e | 12:00 AM | | procedure are in the | | | | PST | | results section. | + +--------+ + + + documented in this encounter Results MRI Lumbar Spine wo Contrast (07/31/2012 12:00 AM PST) + + | Specimen [...]
--- OUTSIDE RECORDS SUMMARY | ~2020-03-19 | XMS | Encounter Summary ---
Demographics + + + | Address | [address] | | | [place] [address] | + + + | Home Phone | | + + + | Preferred Language | Unknown | + + + | Marital Status | | + + + | Congregation Affiliation | Unknown | + + + | Race | Unknown | + + + | Ethnic Group | Unknown | + + + Author + + + | Author | [facility] | | | and [place] | + + + | Organization | [facility] | | | and [...] [place] | | | | | [address] | | + + + + + Care Team Providers + +------+ + | Care District Medical Examiner Name | Role | Phone | + +------+ + | Christina Alan | PCP | | + +------+ + Encounter Details +--------+ + + + + | Date | Type | Department | Care Team | Description | +--------+ + + + + | 02/08/ | Transcribed | [facility] | Christina Alan FNP | Cardiac arrhythmia, | | 2019 | Orders | MED CTR | [address] | unspecified cardiac | | | | ELECTRODIAGNOSTICS | [place]IN | arrhythmia type | | | | [address] [place] | [address] | (Primary Dx) | | | | [place] [address] | | | | | | [phone] | | | +--------+ + + + [...] | | + +------+--------+ + + | Event monitor - 2 | ECG | Routin | Cardiac | 1 Occurrences | | week | | e | Arrhythmia, | starting 02/08/2019 | | | | | Unspecified Cardiac | until 02/09/2020 | | | | | Arrhythmia Type | | + +------+--------+ + + documented as of this encounter Visit Diagnoses + + | Diagnosis | + + | Cardiac arrhythmia, unspecified cardiac arrhythmia type - Primary | + + documented in this encounter"
--- OUTSIDE RECORDS SUMMARY | ~2020-03-19 | XMS | Encounter Summary ---
Demographics + + + | Address | [address] | | | [place] [address] | + + + | Home Phone | | + + + | Preferred Language | Unknown | + + + | Marital Status | | + + + | Taoism Affiliation | Unknown | + + + | Race | Unknown | + + + | Ethnic Group | Unknown | + + + Author + + + | Author | [facility] | | | and [place] | + + + | Organization | [facility] | | | [...] [place] | | | | | [address] | | + + + + + Care Team Providers + +------+ + | Care Power Crane Operator Name | Role | Phone | + +------+ + | Javier Hyman MD | PCP | | + +------+ + Encounter Details +--------+ + + + + | Date | Type | Department | Care Team | Description | +--------+ + + + + | 12/20/ | Hospital | [facility] | Conversion | | | 2017 | Encounter | [facility] | Transaction, | | | | | NUCLEAR MEDICINE | Provider Unknown | | | | | [address] | | | | | | [place], [place] | (Fax) | | | | | [address] | | | | | | [phone] | | | +--------+ + + + [...]
--- OUTSIDE RECORDS SUMMARY | ~2020-03-19 | XMS | Encounter Summary ---
Demographics + + + | Address | [address] | | | [place] [address] | + + + | Home Phone | | + + + | Preferred Language | Unknown | + + + | Marital Status | | + + + | Restorationism Affiliation | Unknown | + + + [...] [place] | | | | | [address] | | + + + + + Care Team Providers + +------+ + | Care Traffic Controller Cable Name | Role | Phone | + [...] | | | | | Procedures | [address] | | | | | MRI Thoracic | DRIVE [place] | [place], [place] | | | | | Spine wo | [place], [place] | [address] | | | | | Contrast | [address] | Phone: | | | | | | Phone: | [phone] | | | | | | [phone] | Fax: | | | | | | Fax: | [phone] | | | | | | [phone] | | +--------+--------+ + + + + [...] + + | 09/19/ | Hospital | [facility] | Christina Alan FNP | Thoracic spine pain | | 2020 | Encounter | MED CTR MRI [address] | [address] | | | | | [place], | [place], [place] | | | | | [place] [address] | [address] | | | | | [phone] | | | | | | | [...] Class 1 (can visualize the entire tonsil) [place] [employer] Anesthesia Grade:ASA 1 - A normal healthy patient Sedation Plan:Moderate VERIFICATION OF CONSENT (PARQ) The patient was counseled regarding the procedure, its indications, risks, potential compli cations and alternatives. Any questions were answered. Consent was obtained. Wil Eubanks MD, 09/19/2019 12:03 PM [facility] documented in this en counter Miscellaneous Notes [...]
--- OUTSIDE RECORDS SUMMARY | ~2020-03-19 | XMS | Encounter Summary ---
Demographics + + + | Address | [address] | | | [place] [address] | + + + | Home Phone [...] [place] | | | | | [address] | | + + + + + Care Team Providers + +------+ + | Care Esol Teacher Assistant Name | Role | Phone | [...] | | | [address] [place] | [place] [address] | | | | | [place] [address] | | | | | | [phone] | | | +--------+ + + + [...]
--- OUTSIDE RECORDS SUMMARY | ~2020-03-19 | XMS | Encounter Summary ---
Demographics + + + | Address | [address] | | | [place] [address] | + + + | Home Phone [...] [place] | | | | | [address] | | + + + + + Care Team Providers + +------+ + | Care Block Cutter Name | Role | Phone | + [...] + | 10/23/ | Documentati | [facility] | Lisa García MD | Pain Management | | 2020 | on | NEUROSURGERY [address] | [address] | (intial encounter) | | | | [address] | [place] [address] | | | | | [place] | [phone] | | | | | [address] | | | | | | [phone] | | | +--------+ + + + [...] Cert MA - 10/24/2019 7:51 AM PDT [place] and [place] PROJECT ACCOUNTANT was checked on 10/24/19 and no medications have been dispensed in the last 3 months. documented in this e ncounter Plan of Treatment Not on filedocumented as of this encounter Visit Diagnoses Not on filedocumented in this encounter"
--- OUTSIDE RECORDS SUMMARY | ~2020-03-19 | XMS | Encounter Summary ---
Demographics + + + | Address | [address] | | | [place] [address] | + + + | Home Phone [...] + | Author | [facility] | | | and [place] | + + + | Organization | [facility] | | | and [...] [place] | | | | | [address] | | + + + + + Care Team Providers + +------+ + | Care Hair Blender Name | Role | Phone | + +------+ + | Javier Hyman MD | PCP | | + +------+ + Encounter Details +--------+ + + + + | Date | Type | Department | Care Team | Description | +--------+ + + + + | 12/20/ | Hospital | [facility] | Conversion | | | 2017 | Encounter | [facility] | Transaction, | | | | | NUCLEAR MEDICINE | Provider Unknown | | | | | [address] | | | | | | [place], [place] | (Fax) | | | | | [address] | | | | | | [phone] | | | +--------+ + + + [...]
--- OUTSIDE RECORDS SUMMARY | ~2020-03-19 | XMS | Encounter Summary ---
Demographics + + + | Address | [address] | | | [place] [address] | + + + | Home Phone | | + + + | Preferred Language | Unknown | + + + | Marital Status | | + + + | Holiness Affiliation | Unknown | + + + [...] [place] | | | | | [address] | | + + + + + Care Team Providers + +------+ + | Care Apple Checker Name | Role | Phone | + [...] Provider Unknown | | | | | [facility] [place] | [phone] | | | | | [address] | | | | | | [phone] | | | +--------+ + + + [...]
--- OUTSIDE RECORDS SUMMARY | ~2020-03-19 | XMS | Encounter Summary ---
Demographics + + + | Address | [address] | | | [place] [address] | + + + | Home Phone | | + + + | Preferred Language | Unknown | + + + | Marital Status | | + + + | Mandaeism Affiliation | Unknown | + + + | Race | Unknown | + + + | Ethnic Group | Unknown | + + + Author + + + | Author | [facility] | | | and [place] | + + + | Organization | [facility] | | | [...] [place] | | | | | [address] | | + + + + + Care Team Providers + +------+ + | Care Personal Banker Name | Role | Phone | + [...] + + | 01/28/ | Telephone | [facility] | Lisa García MD | Coordination Of Care | | 2019 | | [facility] [address] | [address] [address] | | | | | [address] [facility] | [place] [address] | | | | | [place], [place] | [phone] | | | | | [address] | | | | | | [phone] | | | +--------+ + + + [...]
[~2020-03-19 12:30] MED LIST changes: +CRUTCH1 EACH MISC
--- OUTSIDE RECORDS SUMMARY | 2020-03-19 12:34 | XMS ---
[facility] Notification: JESUS MANUEL NATARAJAN Security Pricing Intern Events No recent Security Events currently on file CRITERIA MET - Group Notification - [facility] - 2 Visits in 30 Days CARE PROVIDERS HEATHER CURIEL Nurse Practitioner 03/17/2020-Current PHONE: [phone] [place] has no Care Guidelines for this patient. Kathrin VISIT COUNT (12 MO.) 2 [facility] TOTAL 2 NOTE: Visits indicate total known visits. ED/UCC VISIT TRACKING (12 MO.) 03/19/2020 12:30 [facility] [place] TYPE: Emergency COMPLAINT: - L ANKLE PAIN 03/16/2020 17:28 [facility] [place] TYPE: Emergency COMPLAINT: - ANKLE INJ DIAGNOSES: - Other fracture of upper and lower end of left fibula, initial - Allergy status to other drugs, medicaments and biological sub - Sprain of unspecified ligament of left ankle, initial encount - Pain in left ankle and joints of left foot - Personal history of nicotine dependence - Exposure to other specified factors, initial encounter INPATIENT VISIT TRACKING (12 MO.) No inpatient visits to display in this time frame [email or web address]
[2020-03-19] MEDS ORDERED: PERCOCET 5-3251 EACH PO (13:13)
== END 2020-03-19 13:30 | disposition home or self-care (01) ==
LOC: ED 12:30
DX: S82.402D Unspecified fracture of shaft of left fibula, subsequent encounter for closed fracture with routine healing (principal); Z87.891 Personal history of nicotine dependence; Z88.8 Allergy status to other drugs, medicaments and biological substances
CPT/HCPCS: 99283

== ENCOUNTER 2021-11-06 11:30 | Emergency (ER) | payer OTHER ==
[~2021-11-06] VITALS: Ht 188 cm; Wt 81.7 kg
[~2021-11-06 11:30] MED LIST changes: +PERCOCET 5-3251 EACH PO
--- OUTSIDE RECORDS SUMMARY | 2021-11-06 11:34 | XMS ---
PreManage Notification: JESUS MANUEL NATARAJAN Security [employer] Events No recent Security Events currently on file CRITERIA MET - Group Notification CARE PROVIDERS HEATHER CURIEL Nurse Practitioner 03/17/2020-Current PHONE: [phone] [facility] has no Care Guidelines for this patient. Kathrin VISIT COUNT (12 MO.) 1 JANES Avelar TOTAL 1 NOTE: Visits indicate total known visits. ED/UCC VISIT TRACKING (12 MO.) 11/06/2021 11:31 JANES [facility] TYPE: Emergency COMPLAINT: - CHEST PAIN, DRY MOUTH, FACE/NECK/CHEST TINGLING INPATIENT VISIT TRACKING (12 MO.) No inpatient visits to display in this time frame [email or web address]
[2021-11-06] MEDS ORDERED: CYCLOBENZAPRINE10 MG (11:39)
--- NOTE | 2021-11-08 13:45 | EKG ---
[facility] [address] [facility] [place], [place] [address] Signed Normal sinus rhythm with sinus arrhythmia ST \T\ T wave abnormality, consider inferior ischemia Abnormal ECG No previous ECGs available Confirmed by ADIEL SYKES MD ([id number]) on 11/08/2021 1:44:44 PM Electronically Signed By: ADIEL SYKES MD 11/08/21 1345 PATIENT NAME: JESUS MANUEL NATARAJAN RUBENS Electrocardiogram DATE OF : 84 PHYSICIAN: ADIEL SYKES MD REPORT #: [id number] REPORT IS CONFIDENTIAL AND NOT TO BE RELEASED WITHOUT AUTHORIZATION
== END 2021-11-06 14:45 | disposition home or self-care (01) ==
LOC: ED 11:30
DX: R07.89 Other chest pain (principal); R74.01 Elevation of levels of liver transaminase levels; Z87.891 Personal history of nicotine dependence; Z88.8 Allergy status to other drugs, medicaments and biological substances; Z79.899 Other long term (current) drug therapy
CPT/HCPCS: 36415; 71045; 71260; 80053; 84484; 85025; 93005; 93010; 99285-25; Q9967